=== PATIENT | female | born 1935 | race Caucasian/White ===

== ENCOUNTER 2016-02-23 06:46 | Inpatient (IN) | payer MEDICARE, OTHER ==
[2016-02-22 16:00] LABS: Urine RBC None Seen /hpf (0 - 4)
[2016-02-22 16:28] LABS: Basophils # (auto) 0 uL; Basophils % (auto) 0.4 % (0.0-2.0); Eosinophils # (auto) 0.2 uL; Eosinophils % (auto) 2.2 % (0.0-7.0); Hematocrit 39.1 % (36.0-46.0); Hemoglobin 12.7 g/dL (12.2-16.2); Lymphocytes # (auto) 2.6 uL; Lymphocytes % (auto) 29.1 % (10.0-50.0); Mean Corpuscular Hemoglobin 30.8 pg (28.0-32.0); Mean Corpuscular Hgb Conc. 32.3 g/dL (32.0-36.0); Mean Corpuscular Volume 95.3 fL (80.0-100.0); Mean Platelet Volume 8.9 fL (7.4-10.4); Monocytes # (auto) 0.5 uL; Neutrophils # (auto) 5.5 uL; Neutrophils % (auto) 62.3 % (37.0-80.0); Platelet Count (auto) 327 10^3/uL (140-450); Red Cell Distribution Width 13.9 % (11.6-16.0); White Blood Cell 8.8 10^3/uL (4.4-10.8)
[2016-02-22 16:41] LABS: INR 0.98 (0.9-1.15); Partial Thromboplastin Time 25.8 sec (22.64-33.71); Prothrombin Time 10.1 sec (9.37-12.3)
[2016-02-22 16:54] LABS: Urine Bilirubin Negative (Negative); Urine Blood Negative /uL (Negative); Urine Color Yellow (Yellow); Urine Glucose Normal (Normal); Urine Ketone Negative (Negative); Urine Mucus FEW (None Seen); Urine Nitrite Negative (Negative); Urine Squamous Epithelial Cell FEW /hpf (<5); Urine Urobilinogen Normal (Negative)
[2016-02-22 16:55] LABS: Albumin 3.5 g/dL (3.4-5.0); BUN/Creatinine Ratio 18.9; Bilirubin, Total 0.3 mg/dL (0.2-1.0); Calcium 8.9 mg/dL (8.5-10.1); Potassium 4.2 mmol/L (3.5-5.1); Total Protein 6.8 g/dL (6.4-8.2)
[~2016-02-23] VITALS: Ht 165.1 cm; Wt 67.6 kg
[~2016-02-23 06:46] MED LIST: ACET-1304 PO; AMLO5TAB2 PO; ATEN100T PO; ESTR2TAB PO; HYDR12.56 PO; LISI40TA PO; MELA10CA OR; NIAC500T71 OR; OMEP20CA5 PO
[2016-02-23] MEDS ORDERED: TETRACAINE 1% INJ 2 ML VIAL IJ ONE (08:19)
[2016-02-23] MEDS ORDERED: fentaNYL CITRATE 100 MCG/2 ML VL ONE (08:32)
[2016-02-23] MEDS ORDERED: KETOROLAC TROMETH 60MG/2ML VIAL IM ONE (08:33)
[2016-02-23] MEDS ORDERED: MIDAZOLAM HCL 1MG/1ML-2 ML VIAL ONE ×3 (08:33→10:10)
[2016-02-23] MEDS ORDERED: PROPOFOL 10 MG/ML 20 ML IV ONE (08:33)
[2016-02-23] MEDS ORDERED: DEXAMETHASONE SOD PHOS 10MG/1ML VIAL INJ ONE (08:33)
[2016-02-23] MEDS ORDERED: ONDANSETRON HCL 4 MG/2 ML VIAL ONE (08:33)
[2016-02-23] MEDS ORDERED: MORPHINE SULF(PF) 0.5MG/ML 10ML VIAL ONE (08:41)
[2016-02-23] MEDS ORDERED: SULFAMETH-TRIMETH 80/16MG-ML 10 ML in D5W 5% 250 ML IV ONE (09:00)
[2016-02-23] MEDS ORDERED: NALOXONE HCL 0.4 MG/ML VIAL IV PRN (11:00)
[2016-02-23] MEDS ORDERED: ePHEDrine SULFATE 50 MG/ML AMP IV PRN (11:00)
[2016-02-23] MEDS ORDERED: diphenhdrAMINE HCL 50 MG/1 ML VL IV PRN (11:00)
[2016-02-23] MEDS ORDERED: ONDANSETRON HCL 4 MG/2 ML VIAL IV ONE (11:00)
[2016-02-23] MEDS ORDERED: NALBUPHINE HCL 10 MG/1ml INJECTION SUBCUT ONE (11:00)
[2016-02-23] MEDS ORDERED: DEXAMETHASONE SOD PHOS 10MG/1ML VIAL INJ IV PRN (11:00)
[2016-02-23] MEDS ORDERED: LABETALOL HCL 5 MG/ML 4ML SYRINGE IV PRN (11:00)
[2016-02-23] MEDS ORDERED: HYDROmorphone HCL 2 MG/ML VL IV PRN ×2 (11:00)
[2016-02-23] MEDS ORDERED: MIDAZOLAM HCL 1MG/1ML-2 ML VIAL IV PRN (11:00)
[2016-02-23] MEDS ORDERED: MORPHINE SULF INJ 2 MG/ML SYRINGE 1ML IV PRN (11:00)
[2016-02-23] MEDS ORDERED: LACTATED RINGER'S 1,000 ML IV SCH (11:02)
[2016-02-23] MEDS ORDERED: ACETAMINOPHEN 325 MG TAB PO PRN (11:15)
[2016-02-23] MEDS ORDERED: TEMAZEPAM 15 MG CAP PO PRN (11:15)
[2016-02-23 12:21] VITALS: BP 94/45
[2016-02-23 13:00] VITALS: BP 94/45
[2016-02-23] MEDS: SODIUM CHLOR 0.9% PF (SALINE LOCK) 10ML VIAL IV SCH ×2 (14:00→23:49)
[2016-02-23] MEDS: ONDANSETRON HCL 4 MG/2 ML VIAL IV PRN ×2 (14:02→18:10)
[2016-02-23] MEDS: KETOROLAC TROMETH 30 MG/ML 1ML VIAL IV PRN (14:41)
[2016-02-23 16:42] VITALS: BP 97/45
[2016-02-23] MEDS: HYDROmorphone HCL 2 MG/ML VL IV PRN ×2 (17:18→23:20)
[2016-02-23] MEDS: SULFAMETH-TRIMETH 80/16MG-ML 10 ML in D5W 5% 250 ML IV SCH (18:47)
[2016-02-23] MEDS: DOCUSATE SOD 100 MG CAP PO SCH (21:48)
[2016-02-23 22:00] VITALS: BP 99/59
[2016-02-24] MEDS: ONDANSETRON HCL 4 MG/2 ML VIAL IV PRN ×3 (00:54→19:40)
[2016-02-24] MEDS: SULFAMETH-TRIMETH 80/16MG-ML 10 ML in D5W 5% 250 ML IV SCH ×3 (02:01→18:21)
[2016-02-24] MEDS: KETOROLAC TROMETH 30 MG/ML 1ML VIAL IV PRN ×2 (05:04→19:59)
[2016-02-24 05:29] VITALS: BP 103/62
[2016-02-24] MEDS: SODIUM CHLOR 0.9% PF (SALINE LOCK) 10ML VIAL IV SCH ×3 (06:43→21:41)
[2016-02-24 09:00] VITALS: BP 94/47
[2016-02-24] MEDS ORDERED: MILK OF MAGNESIA 30ML SUSP PO ONE (10:00)
[2016-02-24] MEDS: DOCUSATE SOD 100 MG CAP PO SCH ×3 (10:00→21:36)
[2016-02-24] MEDS: ENOXAPARIN SOD 40 MG/0.4 ML SYRINGE SC SCH (10:40)
[2016-02-24] MEDS: HYDROcodone-ACET 10/325MG TAB PO PRN ×2 (13:00→18:10)
[2016-02-24 13:32] VITALS: BP 98/52
[2016-02-24 13:34] VITALS: BP 98/52
[2016-02-24 17:20] VITALS: BP 92/49
[2016-02-24 22:06] VITALS: BP 114/55
[2016-02-25] MEDS: HYDROcodone-ACET 10/325MG TAB PO PRN ×4 (00:01→22:58)
[2016-02-25] MEDS: ONDANSETRON HCL 4 MG/2 ML VIAL IV PRN ×4 (01:51→18:22)
[2016-02-25] MEDS: KETOROLAC TROMETH 30 MG/ML 1ML VIAL IV PRN (02:49)
[2016-02-25 05:26] VITALS: BP 124/56
[2016-02-25] MEDS: SODIUM CHLOR 0.9% PF (SALINE LOCK) 10ML VIAL IV SCH ×3 (05:43→22:59)
[2016-02-25] MEDS ORDERED: FAMOTIDINE 20 MG TAB PO ONE (08:45)
[2016-02-25 08:51] VITALS: BP 132/59
[2016-02-25] MEDS: DOCUSATE SOD 100 MG CAP PO SCH ×2 (10:26→22:58)
[2016-02-25] MEDS: ENOXAPARIN SOD 40 MG/0.4 ML SYRINGE SC SCH (10:26)
[2016-02-25 12:44] VITALS: BP 125/64
[2016-02-25] MEDS: HYDROmorphone HCL 2 MG/ML VL IV PRN ×2 (12:46→13:08)
[2016-02-25 14:28] LABS: Hematocrit 30.3 % (36.0-46.0)
[2016-02-25 17:02] VITALS: BP 138/74
[2016-02-25 21:59] VITALS: BP 130/68
[2016-02-26] MEDS: HYDROcodone-ACET 10/325MG TAB PO PRN ×3 (05:04→22:08)
[2016-02-26 05:18] VITALS: BP 136/71
[2016-02-26] MEDS: SODIUM CHLOR 0.9% PF (SALINE LOCK) 10ML VIAL IV SCH ×3 (05:54→22:09)
[2016-02-26] MEDS: BOOST 8 ounces PO SCH ×3 (08:19→18:00)
[2016-02-26 09:00] VITALS: BP 156/72
[2016-02-26] MEDS: ENOXAPARIN SOD 40 MG/0.4 ML SYRINGE SC SCH (10:09)
[2016-02-26] MEDS: DOCUSATE SOD 100 MG CAP PO SCH ×2 (10:09→22:08)
[2016-02-26] MEDS: FAMOTIDINE 20 MG TAB PO SCH (10:10)
[2016-02-26] MEDS: ONDANSETRON HCL 4 MG/2 ML VIAL IV PRN (10:19)
[2016-02-26 12:57] LABS: Hematocrit 31.3 % (36.0-46.0); Hemoglobin 10.4 g/dL (12.2-16.2)
[2016-02-26 13:00] VITALS: BP 124/61
[2016-02-26 16:00] VITALS: BP 141/76
[2016-02-26 22:00] VITALS: BP 148/69
[2016-02-27 04:54] VITALS: BP 137/78
[2016-02-27] MEDS: SODIUM CHLOR 0.9% PF (SALINE LOCK) 10ML VIAL IV SCH (06:53)
[2016-02-27] MEDS: BOOST 8 ounces PO SCH (08:00)
[2016-02-27 08:47] LABS: Hematocrit 31.7 % (36.0-46.0); Hemoglobin 10.4 g/dL (12.2-16.2)
[2016-02-27 09:00] VITALS: BP 145/98
[2016-02-27] MEDS: HYDROcodone-ACET 10/325MG TAB PO PRN (10:13)
[2016-02-27] MEDS: ENOXAPARIN SOD 40 MG/0.4 ML SYRINGE SC SCH (10:13)
[2016-02-27] MEDS: FAMOTIDINE 20 MG TAB PO SCH (10:13)
[2016-02-27] MEDS: DOCUSATE SOD 100 MG CAP PO SCH (10:13)
[2016-02-27] MEDS ORDERED: ATENOLOL 50 MG TAB PO ONE (10:15)
[2016-02-27] MEDS ORDERED: POLYETHYLENE GLYCOL 17GM PWDR PO ONE (10:15)
[2016-02-27] MEDS ORDERED: LISINOPRIL 10 MG TAB PO ONE (10:15)
[2016-02-27] MEDS ORDERED: PANTOPRAZOLE 40 MG TAB PO ONE (10:15)
[2016-02-27 11:12] VITALS: BP 145/98
[2016-02-27 13:44] VITALS: BP 128/81
[2016-02-28] MEDS ORDERED: ATENOLOL 50 MG TAB PO SCH (10:00)
[2016-02-28] MEDS ORDERED: LISINOPRIL 10 MG TAB PO SCH (10:00)
== END 2016-02-27 15:50 | DRG 470 ==
LOC: SUR 06:46 → TELE-CENTR 06:47 → CENTRAL 12:31
PROVIDERS: ADMIT Orthopaedic Surgery; ATTEND Family Medicine
PROC: 0SRC0J9 Replacement of Right Knee Joint with Synthetic Substitute, Cemented, Open Approach (ICD-10-PCS; principal; 2016-02-23 08:33)
DX: M17.11 Unilateral primary osteoarthritis, right knee (principal); M21.061 Valgus deformity, not elsewhere classified, right knee; I10 Essential (primary) hypertension; K21.9 Gastro-esophageal reflux disease without esophagitis; K59.00 Constipation, unspecified; S83.001A Unspecified subluxation of right patella, initial encounter; X58.XXXA Exposure to other specified factors, initial encounter; Y93.89 Activity, other specified; Z82.49 Family history of ischemic heart disease and other diseases of the circulatory system; Z88.6 Allergy status to analgesic agent; Z88.1 Allergy status to other antibiotic agents; Z88.0 Allergy status to penicillin; Z88.8 Allergy status to other drugs, medicaments and biological substances; Z83.511 Family history of glaucoma; Z79.899 Other long term (current) drug therapy; Y92.89 Other specified places as the place of occurrence of the external cause; Y99.8 Other external cause status
CPT/HCPCS: 36415; 73562; 80053; 81001; 85014; 85018; 85025; 85049; 85610; 85730; 86850; 86900; 86901; 97001; 97110; 97116; 97530; J1100; J1885; J2250; J2405; J2704; J3490; J7060

== ENCOUNTER → 2016-07-21 | Outpatient (CLI) | payer MEDICARE, OTHER ==
[~2016-07-21] MED LIST changes: -OMEP20CA5 PO; +OMEP20CA74 PO
[2016-07-21 09:50] LABS: Basophils # (auto) 0 uL; Basophils % (auto) 0.3 % (0.0-2.0); CONDITION Y; Eosinophils # (auto) 0.2 uL; Eosinophils % (auto) 1.9 % (0.0-7.0); Hematocrit 38.3 % (36.0-46.0); Hemoglobin 12.9 g/dL (12.2-16.2); Lymphocytes # (auto) 1.6 uL; Lymphocytes % (auto) 19.5 % (10.0-50.0); Mean Corpuscular Hemoglobin 30.9 pg (28.0-32.0); Mean Corpuscular Hgb Conc. 33.8 g/dL (32.0-36.0); Mean Corpuscular Volume 91.5 fL (80.0-100.0); Mean Platelet Volume 7.6 fL (7.4-10.4); Monocytes # (auto) 0.6 uL; Monocytes % (auto) 7.6 % (0.0-12.0); Neutrophils # (auto) 5.6 uL; Neutrophils % (auto) 70.7 % (37.0-80.0); Platelet Count (auto) 357 10^3/uL (140-450); Red Cell Distribution Width 15.1 % (11.6-16.0)
[2016-07-21 10:09] LABS: Albumin 3.4 g/dL (3.4-5.0); BUN/Creatinine Ratio 16.9; Bilirubin, Total 0.6 mg/dL (0.2-1.0); Calcium 8.6 mg/dL (8.5-10.1); Potassium 3.9 mmol/L (3.5-5.1); Total Protein 6.6 g/dL (6.4-8.2)
[2016-07-21 10:38] LABS: Urine Bilirubin Negative (Negative); Urine Blood Negative /uL (Negative); Urine Color Yellow (Yellow); Urine Glucose Normal (Normal); Urine Ketone Negative (Negative); Urine Nitrite Negative (Negative); Urine RBC <1 /hpf (0 - 4); Urine Squamous Epithelial Cell FEW /hpf (<5); Urine Urobilinogen Normal (Negative)
== END | disposition home or self-care (01) ==
LOC: LAB 09:13
PROVIDERS: ATTEND Internal Medicine
DX: E78.5 Hyperlipidemia, unspecified (principal); I10 Essential (primary) hypertension; Z00.00 Encounter for general adult medical examination without abnormal findings; E55.9 Vitamin D deficiency, unspecified
CPT/HCPCS: 36415; 80053; 80061; 81001; 82306; 85025

== ENCOUNTER 2016-09-30 11:10 | Emergency (ER) | payer MEDICARE, OTHER ==
[~2016-09-30] VITALS: Ht 165.1 cm; Wt 59.0 kg
[2016-09-30 11:23] VITALS: BP 198/85
[2016-09-30 12:13] LABS: Basophils # (auto) 0 uL; Basophils % (auto) 0.4 % (0.0-2.0); CONDITION Y; Eosinophils # (auto) 0.4 uL; Eosinophils % (auto) 4.7 % (0.0-7.0); Hematocrit 42.2 % (36.0-46.0); Hemoglobin 14.1 g/dL (12.2-16.2); Lymphocytes # (auto) 2.1 uL; Lymphocytes % (auto) 26.3 % (10.0-50.0); Mean Corpuscular Hemoglobin 31.5 pg (28.0-32.0); Mean Corpuscular Hgb Conc. 33.4 g/dL (32.0-36.0); Mean Corpuscular Volume 94.1 fL (80.0-100.0); Mean Platelet Volume 7.7 fL (7.4-10.4); Monocytes # (auto) 0.6 uL; Monocytes % (auto) 7.1 % (0.0-12.0); Neutrophils % (auto) 61.5 % (37.0-80.0); Platelet Count (auto) 389 10^3/uL (140-450); Red Cell Distribution Width 14.1 % (11.6-16.0); White Blood Cell 8.1 10^3/uL (4.4-10.8)
[2016-09-30 12:43] LABS: Albumin 3.4 g/dL (3.4-5.0); BUN/Creatinine Ratio 14.5; Bilirubin, Total 0.4 mg/dL (0.2-1.0); Potassium 4.3 mmol/L (3.5-5.1); Total Protein 7.4 g/dL (6.4-8.2)
== END 2016-09-30 12:34 | disposition left against medical advice (07) ==
LOC: ER 11:10
DX: R10.9 Unspecified abdominal pain (principal); M54.9 Dorsalgia, unspecified; Z53.21 Procedure and treatment not carried out due to patient leaving prior to being seen by health care provider
CPT/HCPCS: 36415; 80053; 85025

== ENCOUNTER → 2016-10-25 | Outpatient (CLI) | payer MEDICARE, OTHER | END | disposition home or self-care (01) | LOC: LAB 09:58 | PROVIDERS: ATTEND Internal Medicine Gastroenterology | DX: R10.31 Right lower quadrant pain (principal) | CPT/HCPCS: 36415; 82565; 84520 ==

== ENCOUNTER 2016-11-16 12:06 | Emergency (ER) | payer MEDICARE, OTHER ==
[~2016-11-16] VITALS: Ht 165.1 cm; Wt 59.0 kg
[2016-11-16 13:02] VITALS: BP 171/74
[2016-11-16 13:02] LABS: Basophils # (auto) 0.1 uL; Basophils % (auto) 0.7 % (0.0-2.0); Eosinophils # (auto) 0.2 uL; Eosinophils % (auto) 1.6 % (0.0-7.0); Hematocrit 43.5 % (36.0-46.0); Lymphocytes # (auto) 1.8 uL; Lymphocytes % (auto) 16.4 % (10.0-50.0); Mean Corpuscular Hemoglobin 31.1 pg (28.0-32.0); Mean Corpuscular Hgb Conc. 32.3 g/dL (32.0-36.0); Mean Corpuscular Volume 96.2 fL (80.0-100.0); Mean Platelet Volume 7.6 fL (6.9-10.8); Monocytes # (auto) 0.9 uL; Monocytes % (auto) 8.7 % (0.0-12.0); Neutrophils # (auto) 7.9 uL; Neutrophils % (auto) 72.6 % (37.0-80.0); Platelet Count (auto) 299 10^3/uL (140-450); Red Cell Distribution Width 13.8 % (11.8-14.3); White Blood Cell 10.9 10^3/uL (4.4-10.8)
[2016-11-16 13:31] LABS: Albumin 3.7 g/dL (3.4-5.0); BUN/Creatinine Ratio 14.5; Bilirubin, Total 0.8 mg/dL (0.2-1.0); Calcium 8.8 mg/dL (8.5-10.1); Potassium 3.9 mmol/L (3.5-5.1); Total Protein 7.5 g/dL (6.4-8.2)
[2016-11-16] MEDS ORDERED: SODIUM CHLORIDE 0.9% 1,000 ML IV ONE (13:37)
== END 2016-11-16 16:46 | disposition home or self-care (01) ==
LOC: ER 12:06 → EDUNIT# 12:06 → ER 16:46
DX: R10.9 Unspecified abdominal pain (principal); I10 Essential (primary) hypertension; K21.9 Gastro-esophageal reflux disease without esophagitis; Z90.710 Acquired absence of both cervix and uterus; Z90.89 Acquired absence of other organs; Z79.899 Other long term (current) drug therapy; Z88.0 Allergy status to penicillin; Z88.6 Allergy status to analgesic agent; Z88.1 Allergy status to other antibiotic agents
CPT/HCPCS: 36415; 71010; 74176; 80053; 84484; 85025; 93005; 96360; 96361; 99285; J7030

== ENCOUNTER 2016-12-28 22:46 | Emergency (ER) | payer MEDICARE, OTHER ==
[~2016-12-28] VITALS: Ht 165.1 cm; Wt 59.0 kg
[~2016-12-28 22:46] MED LIST changes: +APIX5TAB OR; +HYOS0.1250 PO; +ONDA4TAB5 PO
[2016-12-29] MEDS ORDERED: IOHEXOL 300 MG/ML 100ML BOTTLE IJ ONE (00:46)
[2016-12-29 01:16] LABS: Basophils # (auto) 0 uL; Basophils % (auto) 0.4 % (0.0-2.0); Eosinophils # (auto) 0.1 uL; Eosinophils % (auto) 1.3 % (0.0-7.0); Hematocrit 40.1 % (36.0-46.0); Hemoglobin 13.4 g/dL (12.2-16.2); Lymphocytes # (auto) 1.6 uL; Lymphocytes % (auto) 16.1 % (10.0-50.0); Mean Corpuscular Hemoglobin 31.1 pg (28.0-32.0); Mean Corpuscular Hgb Conc. 33.4 g/dL (32.0-36.0); Mean Platelet Volume 8.1 fL (6.9-10.8); Monocytes # (auto) 0.7 uL; Monocytes % (auto) 7.6 % (0.0-12.0); Neutrophils # (auto) 7.2 uL; Neutrophils % (auto) 74.6 % (37.0-80.0); Platelet Count (auto) 263 10^3/uL (140-450); Red Cell Distribution Width 14.1 % (11.8-14.3); White Blood Cell 9.7 10^3/uL (4.4-10.8)
[2016-12-29 01:30] LABS: Albumin 3.2 g/dL (3.4-5.0); BUN/Creatinine Ratio 13.9; Calcium 8.7 mg/dL (8.5-10.1); Potassium 3.8 mmol/L (3.5-5.1)
[2016-12-29 01:32] LABS: Bilirubin, Total 0.2 mg/dL (0.2-1.0); Total Protein 6.3 g/dL (6.4-8.2)
[2016-12-29 02:39] VITALS: BP 143/69
[2016-12-29] MEDS ORDERED: LACTULOSE 20Gm/30ML SOLN PO ONE (03:00)
[2016-12-29] MEDS ORDERED: MAGNESIUM CITRATE SOLUTION 300 ML BTL PO ONE (03:00)
== END 2016-12-29 04:09 | disposition home or self-care (01) ==
LOC: EDBD 22:46 → ER 22:48
DX: K56.41 Fecal impaction (principal); K21.9 Gastro-esophageal reflux disease without esophagitis; I10 Essential (primary) hypertension; Z90.79 Acquired absence of other genital organ(s); Z90.710 Acquired absence of both cervix and uterus; Z88.0 Allergy status to penicillin; Z88.1 Allergy status to other antibiotic agents; Z88.6 Allergy status to analgesic agent
CPT/HCPCS: 36415; 74177; 80053; 83690; 85025; 93005; 94761; 99285; Q9967

== ENCOUNTER → 2018-02-26 | Outpatient (CLI) | payer MEDICARE, OTHER ==
[~2018-02-26] MED LIST changes: -AMLO5TAB2 PO
[2018-02-26 09:37] LABS: Urine WBC None Seen /hpf (0 - 5)
[2018-02-26 10:12] LABS: Basophils # (auto) 0.1 uL; Basophils % (auto) 0.8 % (0.0-2.0); Eosinophils # (auto) 0.1 uL; Eosinophils % (auto) 1.9 % (0.0-7.0); Hematocrit 42.7 % (36.0-46.0); Hemoglobin 14.4 g/dL (12.2-16.2); Lymphocytes # (auto) 1.9 uL; Lymphocytes % (auto) 27.4 % (10.0-50.0); Mean Corpuscular Hemoglobin 31.7 pg (28.0-32.0); Mean Corpuscular Hgb Conc. 33.8 g/dL (32.0-36.0); Monocytes # (auto) 0.5 uL; Monocytes % (auto) 7.4 % (0.0-12.0); Neutrophils # (auto) 4.4 uL; Neutrophils % (auto) 62.5 % (37.0-80.0); Platelet Count (auto) 306 10^3/uL (140-450); Red Blood Cells 4.55 10^6/uL (4.0-5.20)
[2018-02-26 10:26] LABS: Urine Bacteria NONE SEEN /hpf (None Seen); Urine Blood Negative /uL (Negative); Urine Specific Gravity 1.002 (1.001-1.035)
[2018-02-26 10:30] LABS: INR 0.89 (0.9-1.15); Partial Thromboplastin Time 27.7 sec (23.78-33.04); Prothrombin Time 9.6 sec (9.27-12.13)
[2018-02-26 13:22] LABS: Chloride 95 mmol/L (98-107); Potassium 3.5 mmol/L (3.5-5.1); Sodium 130 mmol/L (136-145)
[2018-02-26 13:33] LABS: Alanine Aminotransferase 18 U/L (13-56); Albumin 3.5 g/dL (3.4-5.0); Alkaline Phosphatase 69 U/L (45-117); Anion Gap 4 (5-15); Aspartate Aminotransferase 18 U/L (15-37); BUN/Creatinine Ratio 10.6; Bilirubin, Total 0.6 mg/dL (0.2-1.0); Blood Urea Nitrogen 7 mg/dL (7-18); Calcium 8.5 mg/dL (8.5-10.1); Carbon Dioxide 31 mmol/L (21-32); Cholesterol 211 mg/dL (< 200); GFR African American > 60 mL/min; GFR Non-African American > 60 mL/min; Glucose 86 mg/dL (74-106); HDL Cholesterol 90 mg/dL (40-59); LDL Cholesterol 106 mg/dL (< 100); Triglycerides 111 mg/dL (< 150)
== END | disposition home or self-care (01) ==
LOC: LAB 09:09
PROVIDERS: ATTEND Physician Assistant
DX: Z01.818 Encounter for other preprocedural examination (principal); I10 Essential (primary) hypertension; E78.2 Mixed hyperlipidemia; I48.0 Paroxysmal atrial fibrillation; E87.6 Hypokalemia; G89.29 Other chronic pain
CPT/HCPCS: 36415; 80053; 80061; 81001; 85025; 85610; 85730; 86850; 86900; 86901

== ENCOUNTER → 2018-06-04 | Outpatient (CLI) | payer MEDICARE, OTHER ==
[2018-06-04 16:59] LABS: Albumin 3.5 g/dL (3.4-5.0); Calcium 9.2 mg/dL (8.5-10.1); Potassium 3.9 mmol/L (3.5-5.1)
[2018-06-04 17:02] LABS: BUN/Creatinine Ratio 14.5; Bilirubin, Total 0.3 mg/dL (0.2-1.0); Total Protein 7.3 g/dL (6.4-8.2)
== END | disposition home or self-care (01) ==
LOC: LAB 15:34
PROVIDERS: ATTEND Physician Assistant
DX: R53.83 Other fatigue (principal); I10 Essential (primary) hypertension; R79.89 Other specified abnormal findings of blood chemistry; Z79.899 Other long term (current) drug therapy; Z83.49 Family history of other endocrine, nutritional and metabolic diseases
CPT/HCPCS: 36415; 80053; 82306; 82607; 83540; 84443

== ENCOUNTER → 2018-07-31 | Outpatient (CLI) | payer MEDICARE, BC | END | disposition home or self-care (01) | LOC: Rad HDHVI 09:53 | PROVIDERS: ATTEND Internal Medicine Cardiovascular Disease | DX: I08.3 Combined rheumatic disorders of mitral, aortic and tricuspid valves (principal); R00.2 Palpitations; I10 Essential (primary) hypertension | CPT/HCPCS: 93306; 93880 ==

== ENCOUNTER → 2018-08-23 | Outpatient (CLI) | payer MEDICARE, BC ==
[~2018-08-23] VITALS: Ht 165.1 cm; Wt 54.4 kg
[~2018-08-23] MED LIST changes: +ADENOSINE 46 MG in GIVE UN-DILUTED 0 ML IV ONE; +ADENOSINE 90 MG/30 ML INJ IV ONE; +cloNIDine HCL 0.1 MG TAB ONE
[2018-08-23 15:50] LABS: Urine Blood Negative /uL (Negative); Urine Specific Gravity 1.003 (1.001-1.035)
[2018-08-23 15:54] LABS: Basophils # (auto) 0.1 uL; Basophils % (auto) 0.9 % (0.0-2.0); Eosinophils # (auto) 0.2 uL; Eosinophils % (auto) 2.4 % (0.0-7.0); Hematocrit 42.4 % (36.0-46.0); Lymphocytes % (auto) 27.2 % (10.0-50.0); Mean Corpuscular Hemoglobin 31.3 pg (28.0-32.0); Mean Corpuscular Hgb Conc. 33.1 g/dL (32.0-36.0); Mean Corpuscular Volume 94.6 fL (80.0-100.0); Monocytes # (auto) 0.6 uL; Monocytes % (auto) 7.7 % (0.0-12.0); Neutrophils # (auto) 4.5 uL; Neutrophils % (auto) 61.8 % (37.0-80.0); Nucleated Red Blood Cells % 0.1 %; Platelet Count (auto) 257 10^3/uL (140-450); Red Blood Cells 4.48 10^6/uL (4.0-5.20); Red Cell Distribution Width 15.2 % (11.8-14.3); White Blood Cell 7.2 10^3/uL (4.4-10.8)
[2018-08-23 15:58] LABS: Albumin 3.3 g/dL (3.4-5.0); Calcium 8.7 mg/dL (8.5-10.1); Potassium 3.8 mmol/L (3.5-5.1)
[2018-08-23 16:01] LABS: BUN/Creatinine Ratio 14.3; Bilirubin, Total 0.5 mg/dL (0.2-1.0); Total Protein 6.6 g/dL (6.4-8.2)
[2018-08-23 16:11] LABS: T3 Total 1.02 ng/mL (0.60-1.81)
[2018-08-23 16:14] LABS: Free T4 (Free Thyroxine) 1.2 ng/dL (0.89-1.76)
== END | disposition home or self-care (01) ==
LOC: Rad HDHVI 08:52
PROVIDERS: ATTEND Internal Medicine Cardiovascular Disease
DX: R00.2 Palpitations (principal); I11.0 Hypertensive heart disease with heart failure; I50.9 Heart failure, unspecified; D64.9 Anemia, unspecified; R53.83 Other fatigue; E03.9 Hypothyroidism, unspecified; E78.00 Pure hypercholesterolemia, unspecified; Z79.899 Other long term (current) drug therapy
CPT/HCPCS: 36415; 78452; 80053; 81003; 83036; 83880; 84439; 84480; 85025; 93005; 96374; 96375; A9500; J0153

== ENCOUNTER → 2018-11-28 | Outpatient (CLI) | payer MEDICARE, BC ==
[~2018-11-28] MED LIST changes: -ADENOSINE 46 MG in GIVE UN-DILUTED 0 ML IV ONE; -ADENOSINE 90 MG/30 ML INJ IV ONE; +ONDA-144 PO; -ONDA4TAB5 PO; -cloNIDine HCL 0.1 MG TAB ONE
== END | disposition home or self-care (01) ==
LOC: LAB 14:07
PROVIDERS: ATTEND Physician Assistant
DX: Z12.11 Encounter for screening for malignant neoplasm of colon (principal)
CPT/HCPCS: 82274

== ENCOUNTER → 2019-02-27 | Outpatient (CLI) | payer MEDICARE, BC ==
[~2019-02-27] MED LIST changes: +READI-CAT 2 (BARIUM SULF)(VANILLA SMOOTHIE) 450ML ONE
[2019-02-27 12:35] LABS: Albumin 3.4 g/dL (3.4-5.0); Bilirubin, Direct 0.1 mg/dL (0-0.2); Bilirubin, Total 0.4 mg/dL (0.2-1.0)
== END | disposition home or self-care (01) ==
LOC: Rad HDHVI 09:29
PROVIDERS: ATTEND Internal Medicine Cardiovascular Disease
DX: E78.5 Hyperlipidemia, unspecified (principal); R10.9 Unspecified abdominal pain; R06.02 Shortness of breath; M46.05 Spinal enthesopathy, thoracolumbar region; I70.0 Atherosclerosis of aorta; Z90.49 Acquired absence of other specified parts of digestive tract
CPT/HCPCS: 36415; 74176; 80061; 80076

== ENCOUNTER 2019-10-28 10:16 | Inpatient (IN) | payer MEDICARE, BC ==
[~2019-10-28] VITALS: Ht 165.1 cm; Wt 63.8 kg
[~2019-10-28 10:16] MED LIST changes: -LISI40TA PO; +LISI40TA11 PO; -READI-CAT 2 (BARIUM SULF)(VANILLA SMOOTHIE) 450ML ONE
[2019-10-28] MEDS ORDERED: SODIUM CHLORIDE 0.9% 500 ML IVB ONE (10:25)
[2019-10-28] MEDS ORDERED: MORPHINE SULFATE 4 MG/ML SYR/VIAL IV ONE (10:30)
[2019-10-28] MEDS ORDERED: ONDANSETRON HCL 4 MG/2 ML VIAL IV ONE (10:30)
[2019-10-28 11:07] LABS: Basophils # (auto) 0.1 10 ^3/uL (0-0.2); Eosinophils # (auto) 0.2 10 ^3/uL (0-0.8); Hematocrit 48.5 % (36.0-46.0); Hemoglobin 16.1 g/dL (12.2-16.2); Lymphocytes # (auto) 2.2 10 ^3/uL (0.4-5.4); Lymphocytes % (auto) 18.4 % (10.0-50.0); Mean Corpuscular Hemoglobin 31.1 pg (28.0-32.0); Mean Corpuscular Hgb Conc. 33.2 g/dL (32.0-36.0); Mean Corpuscular Volume 93.5 fL (80.0-100.0); Monocytes % (auto) 8.3 % (0.0-12.0); Neutrophils # (auto) 8.4 10 ^3/uL (1.6-8.6); Neutrophils % (auto) 70.3 % (37.0-80.0); Nucleated Red Blood Cells % 0.1 %; Platelet Count (auto) 369 10^3/uL (140-450); Red Blood Cells 5.18 10^6/uL (4.0-5.20); Red Cell Distribution Width 14.3 % (11.8-14.3); White Blood Cell 11.9 10^3/uL (4.4-10.8)
[2019-10-28 11:33] LABS: Anion Gap 7 (5-15); Blood Urea Nitrogen 17 mg/dL (7-18); Calcium 9.7 mg/dL (8.5-10.1); Carbon Dioxide 28 mmol/L (21-32); Chloride 101 mmol/L (98-107); Glucose 96 mg/dL (74-106); Lipase 294 U/L (73-393); Potassium 3.7 mmol/L (3.5-5.1); Sodium 136 mmol/L (136-145)
[2019-10-28 11:47] LABS: Alanine Aminotransferase 40 U/L (13-56); Alkaline Phosphatase 86 U/L (45-117); Aspartate Aminotransferase 26 U/L (15-37); BUN/Creatinine Ratio 17.2; Bilirubin, Total 0.4 mg/dL (0.2-1.0); GFR African American 69 mL/min; GFR Non-African American 57 mL/min; Total Protein 8.4 g/dL (6.4-8.2)
[2019-10-28] MEDS ORDERED: NITROGLYCERIN 0.4 MG SL TAB SL PRN (12:30)
[2019-10-28] MEDS ORDERED: MORPHINE SULF INJ 2 MG/ML SYRINGE 1ML IV PRN ×3 (12:30→16:30)
[2019-10-28] MEDS ORDERED: ONDANSETRON HCL 4 MG/2 ML VIAL IV PRN (12:45)
[2019-10-28] MEDS ORDERED: ENOXAPARIN SOD 30 MG/0.3 ML SYRINGE SC ONE (12:45)
[2019-10-28] MEDS ORDERED: LORazepam 2MG/ML-1ML VIAL IV PRN (12:45)
[2019-10-28] MEDS ORDERED: hydrALAZINE HCL 20 MG/ML VL IV PRN (12:45)
[2019-10-28 13:40] LABS: Urine Bacteria NONE SEEN /hpf (None Seen); Urine Blood Negative /uL (Negative); Urine Hyaline Cast MOD /lpf (0 - 2); Urine Specific Gravity 1.011 (1.001-1.035); Urine WBC 2 /hpf (0 - 5)
[2019-10-28] MEDS ORDERED: AMIT PO (13:55)
[2019-10-28] MEDS ORDERED: NIFE1TAB30 PO (13:55)
[2019-10-28] MEDS ORDERED: VENL37.588 PO (13:55)
[2019-10-28] MEDS ORDERED: FAMO-12 PO (13:55)
[2019-10-28] MEDS ORDERED: TRAM50TA2 PO (13:55)
[2019-10-28] MEDS ORDERED: CLO01T PO (13:55)
[2019-10-28] MEDS ORDERED: GLUC1CAP12 PO (14:02)
[2019-10-28] MEDS ORDERED: MULT-1058 PO (14:02)
[2019-10-28] MEDS ORDERED: POLY33504 PO (14:02)
[2019-10-28] MEDS: D5W/SOD CHLO 0.9% 1,000 ML IV SCH (14:11)
[2019-10-28] MEDS: ENALAPRILAT 1.25 MG/ML-1ML VIAL IV SCH (18:00)
[2019-10-28] MEDS: HYOSCYAMINE SULF 0.125 MG ODT TAB PO PRN (21:40)
[2019-10-28 22:00] VITALS: BP 129/75
[2019-10-29] MEDS: D5W/SOD CHLO 0.9% 1,000 ML IV SCH (02:59)
[2019-10-29 05:00] VITALS: BP 137/65
[2019-10-29] MEDS: ENALAPRILAT 1.25 MG/ML-1ML VIAL IV SCH ×2 (06:00)
[2019-10-29 06:29] LABS: Basophils # (auto) 0.1 10 ^3/uL (0-0.2); Eosinophils # (auto) 0.2 10 ^3/uL (0-0.8); Eosinophils % (auto) 2.9 % (0.0-7.0); Hematocrit 34.2 % (36.0-46.0); Hemoglobin 11.7 g/dL (12.2-16.2); Lymphocytes # (auto) 1.9 10 ^3/uL (0.4-5.4); Lymphocytes % (auto) 28.6 % (10.0-50.0); Mean Corpuscular Hgb Conc. 34.2 g/dL (32.0-36.0); Mean Corpuscular Volume 93.5 fL (80.0-100.0); Monocytes # (auto) 0.6 10 ^3/uL (0-1.3); Monocytes % (auto) 8.5 % (0.0-12.0); Neutrophils # (auto) 3.8 10 ^3/uL (1.6-8.6); Nucleated Red Blood Cells % 0.1 %; Platelet Count (auto) 271 10^3/uL (140-450); Red Blood Cells 3.66 10^6/uL (4.0-5.20); Red Cell Distribution Width 14.1 % (11.8-14.3); White Blood Cell 6.5 10^3/uL (4.4-10.8)
[2019-10-29 06:49] LABS: INR 0.97 (0.9-1.15); Partial Thromboplastin Time 26.5 sec (23.0-31.2)
[2019-10-29 06:52] LABS: Potassium 3.8 mmol/L (3.5-5.1)
[2019-10-29 07:24] LABS: Albumin 2.6 g/dL (3.4-5.0); BUN/Creatinine Ratio 21.1; Bilirubin, Total 0.4 mg/dL (0.2-1.0); Calcium 7.8 mg/dL (8.5-10.1); Phosphorus 2.4 mg/dL (2.5-4.90); Total Protein 5.2 g/dL (6.4-8.2)
[2019-10-29 09:00] VITALS: BP 166/84
[2019-10-29] MEDS: PANTOPRAZOLE 40 MG/10 ML VIAL INJ IV SCH (10:14)
[2019-10-29] MEDS: HYOSCYAMINE SULF 0.125 MG ODT TAB PO PRN (10:15)
[2019-10-29] MEDS ORDERED: LORazepam 2MG/ML-1ML VIAL IV PRN (11:45)
[2019-10-29] MEDS ORDERED: traMADol HCL 50 MG TAB PO PRN (11:45)
[2019-10-29] MEDS ORDERED: LISINOPRIL 20 MG TAB PO ONE (11:45)
[2019-10-29] MEDS ORDERED: MORPHINE SULF INJ 2 MG/ML SYRINGE 1ML IV PRN (11:45)
[2019-10-29 13:07] VITALS: BP 108/70
[2019-10-29 13:10] VITALS: BP 164/70
[2019-10-29 16:50] VITALS: BP 151/74
[2019-10-29] MEDS: Ensure Enlive Strawberry 8oz Bottle PO SCH (19:20)
[2019-10-29 22:00] VITALS: BP 161/74
[2019-10-29] MEDS ORDERED: DOCUSATE SOD 100 MG CAP PO ONE (22:30)
[2019-10-30] VITALS: BP 130/62
[2019-10-30 05:00] VITALS: BP 158/74
[2019-10-30 06:04] LABS: Basophils # (auto) 0 10 ^3/uL (0-0.2); Basophils % (auto) 0.6 % (0.0-2.0); Eosinophils # (auto) 0.3 10 ^3/uL (0-0.8); Eosinophils % (auto) 3.4 % (0.0-7.0); Hematocrit 37.3 % (36.0-46.0); Hemoglobin 12.6 g/dL (12.2-16.2); Lymphocytes # (auto) 2.2 10 ^3/uL (0.4-5.4); Lymphocytes % (auto) 29.3 % (10.0-50.0); Mean Corpuscular Hemoglobin 31.9 pg (28.0-32.0); Mean Corpuscular Hgb Conc. 33.9 g/dL (32.0-36.0); Mean Corpuscular Volume 94.3 fL (80.0-100.0); Monocytes # (auto) 0.7 10 ^3/uL (0-1.3); Monocytes % (auto) 8.6 % (0.0-12.0); Neutrophils # (auto) 4.4 10 ^3/uL (1.6-8.6); Neutrophils % (auto) 58.1 % (37.0-80.0); Nucleated Red Blood Cells % 0.2 %; Platelet Count (auto) 288 10^3/uL (140-450); Red Blood Cells 3.95 10^6/uL (4.0-5.20); Red Cell Distribution Width 14.3 % (11.8-14.3); White Blood Cell 7.6 10^3/uL (4.4-10.8)
[2019-10-30 06:28] LABS: Albumin 2.9 g/dL (3.4-5.0); Calcium 8.6 mg/dL (8.5-10.1); Potassium 4.2 mmol/L (3.5-5.1)
[2019-10-30 06:34] LABS: BUN/Creatinine Ratio 28.2; Bilirubin, Total 0.3 mg/dL (0.2-1.0); Total Protein 6.1 g/dL (6.4-8.2)
[2019-10-30] MEDS: Ensure Enlive Strawberry 8oz Bottle PO SCH ×2 (08:00→16:19)
[2019-10-30] MEDS ORDERED: LISINOPRIL 20 MG TAB PO SCH (10:00)
[2019-10-30] MEDS ORDERED: DOCUSATE SOD 100 MG CAP PO SCH (10:00)
[2019-10-30] MEDS ORDERED: LACTULOSE 20Gm/30ML SOLN PO PRN (10:15)
[2019-10-30] MEDS: PANTOPRAZOLE 40 MG/10 ML VIAL INJ IV SCH (10:30)
[2019-10-30 13:00] VITALS: BP 165/74
[2019-10-30] MEDS ORDERED: LISINOPRIL 20 MG TAB PO ONE (14:30)
[2019-10-30] MEDS ORDERED: cloNIDine HCL 0.1 MG TAB PO PRN (16:15)
[2019-10-30 17:00] VITALS: BP 175/90
== END 2019-10-30 18:24 | disposition home or self-care (01) | DRG 390 ==
LOC: EDBD 10:16 → ER 10:16 → OVERFLOW 10:17 → CENTRAL 18:17
PROVIDERS: ATTEND Internal Medicine
DX: K56.600 Partial intestinal obstruction, unspecified as to cause (principal); K21.9 Gastro-esophageal reflux disease without esophagitis; I10 Essential (primary) hypertension; K59.00 Constipation, unspecified; K83.8 Other specified diseases of biliary tract; Z79.01 Long term (current) use of anticoagulants; Z79.899 Other long term (current) drug therapy; Z80.0 Family history of malignant neoplasm of digestive organs; Z82.49 Family history of ischemic heart disease and other diseases of the circulatory system; Z90.710 Acquired absence of both cervix and uterus; Z88.1 Allergy status to other antibiotic agents
CPT/HCPCS: 36415; 71045; 72125; 74176; 74181; 80053; 80061; 81001; 82150; 83690; 83735; 84100; 84436; 84443; 84484; 85025; 85610; 85730; 93005; 96374; 96375; 96376; C9113; G0378; J2405; J7042

== ENCOUNTER 2019-11-06 07:51 | Inpatient (IN) | payer MEDICARE, BC ==
[~2019-11-06] VITALS: Ht 165.1 cm; Wt 62.3 kg
[~2019-11-06 07:51] MED LIST changes: -ACET-1304 PO; +AMIT PO; -APIX5TAB OR; +CLO01T PO; +FAMO-12 PO; +GLUC1CAP12 PO; -HYDR12.56 PO; -HYOS0.1250 PO; +MULT-1058 PO; -NIAC500T71 OR; +NIFE1TAB30 PO; -OMEP20CA74 PO; -ONDA-144 PO; +POLY33504 PO; +TRAM50TA2 PO; +VENL37.588 PO
[2019-11-06] MEDS ORDERED: PROMETHAZINE HCL 25 MG/ML 1ML IV PRN (08:15)
[2019-11-06] MEDS ORDERED: HYDROmorphone HCL 2 MG/ML VL IV ONE (08:15)
[2019-11-06] MEDS ORDERED: SODIUM CHLORIDE 0.9% 1,000 ML IV ONE (08:15)
[2019-11-06 08:33] LABS: Basophils # (auto) 0.1 10 ^3/uL (0-0.2); Basophils % (auto) 0.7 % (0.0-2.0); Eosinophils # (auto) 0.4 10 ^3/uL (0-0.8); Eosinophils % (auto) 2.8 % (0.0-7.0); Hematocrit 41.1 % (36.0-46.0); Hemoglobin 13.8 g/dL (12.2-16.2); Lymphocytes # (auto) 1.8 10 ^3/uL (0.4-5.4); Lymphocytes % (auto) 13.2 % (10.0-50.0); Mean Corpuscular Hemoglobin 31.7 pg (28.0-32.0); Mean Corpuscular Hgb Conc. 33.6 g/dL (32.0-36.0); Mean Corpuscular Volume 94.3 fL (80.0-100.0); Monocytes # (auto) 1.1 10 ^3/uL (0-1.3); Monocytes % (auto) 7.6 % (0.0-12.0); Neutrophils # (auto) 10.5 10 ^3/uL (1.6-8.6); Neutrophils % (auto) 75.7 % (37.0-80.0); Platelet Count (auto) 392 10^3/uL (140-450); Red Blood Cells 4.36 10^6/uL (4.0-5.20); Red Cell Distribution Width 14.3 % (11.8-14.3); White Blood Cell 13.8 10^3/uL (4.4-10.8)
[2019-11-06 08:49] LABS: Albumin 3.3 g/dL (3.4-5.0); Calcium 8.8 mg/dL (8.5-10.1); Magnesium 2.3 mg/dL (1.6-2.6); Potassium 4.4 mmol/L (3.5-5.1)
[2019-11-06 08:51] LABS: BUN/Creatinine Ratio 22.7; Bilirubin, Total 0.3 mg/dL (0.2-1.0); Total Protein 6.8 g/dL (6.4-8.2)
[2019-11-06] MEDS ORDERED: IOHEXOL 300 MG/ML 100ML BOTTLE IJ ONE (09:13)
[2019-11-06 09:27] LABS: INR 0.92 (0.9-1.15); Partial Thromboplastin Time 26.2 sec (23.0-31.2)
[2019-11-06 11:39] LABS: Urine Bacteria NONE SEEN /hpf (None Seen); Urine Blood Negative /uL (Negative); Urine Specific Gravity 1.024 (1.001-1.035); Urine WBC 1 /hpf (0 - 5)
[2019-11-06] MEDS ORDERED: ACETAMINOPHEN 500 MG TAB PO PRN (12:00)
[2019-11-06] MEDS ORDERED: MORPHINE SULF INJ 2 MG/ML SYRINGE 1ML IV PRN ×2 (12:00)
[2019-11-06] MEDS ORDERED: ONDANSETRON HCL 4 MG/2 ML VIAL IV PRN (12:00)
[2019-11-06] MEDS ORDERED: NITROGLYCERIN 0.4 MG SL TAB SL PRN (12:00)
[2019-11-06] MEDS ORDERED: cefTRIAXone 1GM/50ML D5W 50 ML IV ONE (12:45)
[2019-11-06] MEDS ORDERED: LISINOPRIL 20 MG TAB PO ONE (12:45)
[2019-11-06] MEDS ORDERED: PANTOPRAZOLE 40 MG/10 ML VIAL INJ IV ONE (13:00)
[2019-11-06] MEDS ORDERED: ATENOLOL 25 MG TAB PO ONE (13:00)
[2019-11-06] MEDS ORDERED: DICY20TA PO (13:51)
[2019-11-06] MEDS: metroNIDAZOLE 500MG/100ML 100 ML IV SCH ×2 (14:22→22:12)
--- NOTE | 2019-11-06 15:30 | NUR ---
Telemetry admit from ER VICTORINO,JORDON DELVALLE admitted to Telemetry unit after SBAR received. Patient oriented to Kary Pelaez, primary RN, unit, room, bed, and unit policies regarding patient care and visiting hours. Patient now on continuous telemetry monitoring, tele box #29 and telemetry reading on arrival to unit is sinus rhythm @ 71 bpm. IV to left upper arm, 20 gauge, patent and saline locked. Patient placed on bedside oxygen, weighed by bedscale and encouraged to call if they need something. All questions and concerns addressed, patient verbalized understanding.
[2019-11-06 16:49] VITALS: BP 129/61
[2019-11-06] MEDS: VENLAFAXINE HCL 37.5mg XR cap PO SCH (17:49)
[2019-11-06] MEDS ORDERED: NIFEdipine ER 30 MG TAB PO SCH (18:00)
--- NOTE | 2019-11-06 19:02 | NUR ---
Care endorsed to GAYLE Reeves, night nurse.
--- NOTE | 2019-11-06 19:30 | NUR ---
Opening Shift Note Assumed care of patient, awake and alert. No S/S of distress/SOB or pain. Instructed on POC and to call for assist PRN, will continue to monitor for changes Q1hr and PRN.
[2019-11-06 22:00] VITALS: BP 116/52
[2019-11-06] MEDS: ATENOLOL 25 MG TAB PO SCH (22:00)
[2019-11-07] MEDS: AMITRIPTYLINE HCL 10 MG TAB PO PRN ×2 (01:14→22:05)
[2019-11-07 05:01] VITALS: BP 150/61
[2019-11-07 06:19] LABS: Potassium 4.1 mmol/L (3.5-5.1)
[2019-11-07 06:28] LABS: Albumin 2.8 g/dL (3.4-5.0); BUN/Creatinine Ratio 15.3; Bilirubin, Total 0.3 mg/dL (0.2-1.0); Calcium 8.5 mg/dL (8.5-10.1); Total Protein 6.1 g/dL (6.4-8.2)
[2019-11-07] MEDS: metroNIDAZOLE 500MG/100ML 100 ML IV SCH ×3 (06:41→22:05)
--- NOTE | 2019-11-07 07:30 | NUR ---
Shift uneventful. Report given to GAYLE Darling.
[2019-11-07] MEDS: cefTRIAXone 1GM/50ML D5W 50 ML IV SCH (08:47)
[2019-11-07 09:00] VITALS: BP 135/63
[2019-11-07] MEDS ORDERED: LISINOPRIL 20 MG TAB PO SCH (10:00)
[2019-11-07] MEDS: ATENOLOL 25 MG TAB PO SCH (10:00)
[2019-11-07] MEDS ORDERED: GASTROGRAFIN 120 ML SOL ONE (10:26)
--- NOTE | 2019-11-07 10:30 | NUR ---
PATIENT TO RADIOLOGY PER W/C FOR SMALL BOWEL SERIES IN STABLE CONDITION.
--- NOTE | 2019-11-07 11:45 | NUR ---
PATIENT RETURNED FROM RADIOLOGY PER W/C IN STABLE CONDITION.
[2019-11-07] MEDS: PANTOPRAZOLE 40 MG/10 ML VIAL INJ IV SCH (11:51)
[2019-11-07 13:00] VITALS: BP 150/77
[2019-11-07 17:20] VITALS: BP 164/73
[2019-11-07] MEDS: VENLAFAXINE HCL 37.5mg XR cap PO SCH (18:04)
--- NOTE | 2019-11-07 18:09 | NUR ---
IV removal IV DC'd with sterile technique, catheter fully intact. Pressure dressing applied to site. Patient tolerated procedure well. IV insertion IV access obtained, via clean sterile technique by inserting 22 gauge catheter at right wrist after 1 attempt(s). IV secured properly. No trauma to site. Patient tolerated procedure well.
--- NOTE | 2019-11-07 19:30 | NUR ---
Opening Shift Note Received report from Phong ARAUJO. Assumed care of patient, awake and alert. No S/S of distress/SOB or pain. Instructed on POC and to call for assist PRN, will continue to monitor for changes Q1hr and PRN.
--- NOTE | 2019-11-07 21:38 | NUR ---
Dr. Brett Santoyo called, received order to advance diet to full liquid in AM. Order carried out.
[2019-11-07 22:11] VITALS: BP 159/72
[2019-11-08 05:02] VITALS: BP 157/99
[2019-11-08] MEDS: metroNIDAZOLE 500MG/100ML 100 ML IV SCH ×3 (05:33→22:00)
[2019-11-08 06:05] LABS: Basophils # (auto) 0.1 10 ^3/uL (0-0.2); Basophils % (auto) 0.9 % (0.0-2.0); Eosinophils # (auto) 0.4 10 ^3/uL (0-0.8); Eosinophils % (auto) 4.9 % (0.0-7.0); Hematocrit 39.6 % (36.0-46.0); Hemoglobin 13.3 g/dL (12.2-16.2); Lymphocytes # (auto) 2.3 10 ^3/uL (0.4-5.4); Lymphocytes % (auto) 25.8 % (10.0-50.0); Mean Corpuscular Hemoglobin 31.5 pg (28.0-32.0); Mean Corpuscular Hgb Conc. 33.6 g/dL (32.0-36.0); Mean Corpuscular Volume 93.7 fL (80.0-100.0); Monocytes # (auto) 0.8 10 ^3/uL (0-1.3); Monocytes % (auto) 9.3 % (0.0-12.0); Neutrophils # (auto) 5.3 10 ^3/uL (1.6-8.6); Neutrophils % (auto) 59.1 % (37.0-80.0); Nucleated Red Blood Cells % 0.1 %; Platelet Count (auto) 340 10^3/uL (140-450); Red Blood Cells 4.22 10^6/uL (4.0-5.20); Red Cell Distribution Width 14.3 % (11.8-14.3)
[2019-11-08 06:31] LABS: Potassium 3.8 mmol/L (3.5-5.1)
[2019-11-08 06:35] LABS: BUN/Creatinine Ratio 8.2; Calcium 8.6 mg/dL (8.5-10.1)
[2019-11-08 09:00] VITALS: BP 163/79
[2019-11-08] MEDS: cefTRIAXone 1GM/50ML D5W 50 ML IV SCH (09:30)
[2019-11-08] MEDS: PANTOPRAZOLE 40 MG/10 ML VIAL INJ IV SCH (10:28)
[2019-11-08] MEDS: LISINOPRIL 20 MG TAB PO SCH (10:29)
[2019-11-08 13:00] VITALS: BP 167/81
--- NOTE | 2019-11-08 13:00 | NUR ---
DR. ZAZUETA WAS IN TO SEE PATIENT AND NOTIFIED OF PATIENTS HIGH BLOOD PRESSURE AND MD LEFT NEW ORDERS. MD ALSO TRANSFER SERVIVE TO DR. PALMER AFTER TALKING TO HIM.
[2019-11-08] MEDS ORDERED: ATENOLOL 50 MG TAB PO ONE (14:30)
--- NOTE | 2019-11-08 14:37 | NUR ---
US Guided IV insertion IV access obtained, via clean sterile technique by using ultra sound and inserting a 20 gauge catheter via the right basilic vein after one attempt. IV secured properly. No trauma to site. Patient tolerated well. Primary RN Phong notified.
[2019-11-08] MEDS ORDERED: cloNIDine HCL 0.1 MG TAB PO PRN (15:45)
--- NOTE | 2019-11-08 15:52 | NUR ---
CONTACTED DR. PALMER ABOUT PATIENT'S BP 203/73 EVEN AFTER RECEIVING ATENOLOL. PATIENT ALSO C/O NOT FEELING WELL AND DIZZY ND MD MADE AWARE OF SAME. MD LEFT NEW ORDERS. WILL CONTINUE TO MONITOR PATIENT
--- NOTE | 2019-11-08 16:02 | NUR ---
Nutrition Assessment Notes Please refer to link for full assessment notes. Est Energy needs: 3638-9717 kcals (20-23 kcal/kgBW) Est Protein needs: 64-71 gms/day (1.0-1.1 gm/kgBW) Will continue to monitor and reassess prn. Addendum: 11/08/19 at [address] Amended: Links added.
[2019-11-08 17:17] VITALS: BP 166/76
[2019-11-08] MEDS: VENLAFAXINE HCL 37.5mg XR cap PO SCH (18:42)
[2019-11-08] MEDS: Ensure HIGH Protein Chocolate 8oz Bottle PO SCH (18:43)
--- NOTE | 2019-11-08 19:25 | NUR ---
Opening Shift Note Received report from Phong ARAUJO. Assumed care of patient, awake and alert. No S/S of distress/SOB or pain. Instructed on POC and to call for assist PRN. Fall precaution measures in place, will continue to monitor for changes Q1hr and PRN.
[2019-11-08 22:00] VITALS: BP 142/72
[2019-11-08] MEDS: AMITRIPTYLINE HCL 10 MG TAB PO PRN (22:00)
[2019-11-08] MEDS: NIFEdipine ER 30 MG TAB PO SCH (22:00)
[2019-11-09] MEDS: HYDROcodone-ACET 5/325MG TAB PO PRN ×2 (03:00→09:48)
[2019-11-09 05:00] VITALS: BP 157/75
[2019-11-09] MEDS: metroNIDAZOLE 500MG/100ML 100 ML IV SCH (06:04)
--- NOTE | 2019-11-09 08:00 | NUR ---
OPENING SHIFT NOTE ASSUMED CARE OF PATIENT AWAKE AND ALERT. NO S/S OF DISTRESS NOTED OR COMPLAINTS OF PAIN. PATIENT UPDATED ON POC FOR THE DAY AND ALL QUESTIONS ANSWERED. BED IS IN LOWEST, LOCKED POSITION WITH SIDE RAILS UP X2 AND CALL LIGHT WITHIN REACH. WILL CONTINUE TO MONITOR Q1H AND PRN.
[2019-11-09 09:00] VITALS: BP 118/69
[2019-11-09] MEDS: cefTRIAXone 1GM/50ML D5W 50 ML IV SCH (09:00)
[2019-11-09] MEDS: Ensure HIGH Protein Chocolate 8oz Bottle PO SCH ×3 (09:48→17:40)
[2019-11-09] MEDS: LISINOPRIL 20 MG TAB PO SCH (09:49)
[2019-11-09] MEDS: PANTOPRAZOLE 40 MG/10 ML VIAL INJ IV SCH (09:49)
[2019-11-09] MEDS: ATENOLOL 50 MG TAB PO SCH (09:49)
--- NOTE | 2019-11-09 12:50 | NUR ---
AT BEDSIDE DR PALMER AT BEDSIDE ROUNDING ON PATIENT.
[2019-11-09 13:00] VITALS: BP 144/58
[2019-11-09 17:00] VITALS: BP 144/69
[2019-11-09] MEDS: VENLAFAXINE HCL 37.5mg XR cap PO SCH (17:40)
[2019-11-09] MEDS: metroNIDAZOLE 500 MG TAB PO SCH (17:40)
--- NOTE | 2019-11-09 19:20 | NUR ---
Opening Shift Note Received report from Shaniqua ARAUJO. Assumed care of patient, awake and alert. No S/S of distress/SOB or pain. Instructed on POC and to call for assist PRN, will continue to monitor for changes Q1hr and PRN. Addendum: 11/10/19 at 0639 by Jian Pollard RN Report received from Angela ARUAJO.
[2019-11-09 22:00] VITALS: BP 161/79
[2019-11-09] MEDS: AMITRIPTYLINE HCL 10 MG TAB PO PRN (22:21)
[2019-11-09] MEDS: NIFEdipine ER 30 MG TAB PO SCH (22:21)
[2019-11-09] MEDS: AMOXICILLIN/CLAVUL 875 MG TAB PO SCH (22:21)
[2019-11-10] MEDS: metroNIDAZOLE 500 MG TAB PO SCH ×3 (00:30→12:00)
[2019-11-10] MEDS: HYOSCYAMINE SULF 0.125 MG ODT TAB PO PRN ×2 (01:47→06:55)
[2019-11-10 05:30] VITALS: BP 148/98
[2019-11-10] MEDS: Ensure HIGH Protein Chocolate 8oz Bottle PO SCH ×3 (08:00→18:23)
[2019-11-10 09:00] VITALS: BP 150/79
[2019-11-10] MEDS: PANTOPRAZOLE 40 MG/10 ML VIAL INJ IV SCH (09:16)
[2019-11-10] MEDS: ATENOLOL 50 MG TAB PO SCH (09:17)
[2019-11-10] MEDS: LISINOPRIL 20 MG TAB PO SCH (09:17)
[2019-11-10] MEDS ORDERED: PANTOPRAZOLE 40 MG TAB PO ONE (09:30)
[2019-11-10] MEDS: AMOXICILLIN/CLAVUL 875 MG TAB PO SCH (09:48)
[2019-11-10 13:00] VITALS: BP 152/85
[2019-11-10] MEDS: HYDROcodone-ACET 5/325MG TAB PO PRN ×2 (14:04→22:28)
[2019-11-10 17:00] VITALS: BP 147/60
--- NOTE | 2019-11-10 17:50 | NUR ---
Midline Placement: Patient educated on need for midline placement. All risks and benefits explained and all questions and concerns addresses prior to procedure. 4Fr 20cm midline inserted via left brchial vein using Ultrasound. Sterile technique utilized. Blood return obtained from single lumen and flushed easily with NS using proper technique. Midline secured with saline lock; biodisc and occlusive dressing applied. Primary RN notified. Midline lot #[id number]. Internal length 20cm External length 0cm
[2019-11-10] MEDS ORDERED: PANTOPRAZOLE 40 MG/10 ML VIAL INJ IV ONE (18:00)
--- NOTE | 2019-11-10 18:20 | NUR ---
Midline obtained after unsuccessful attempt x2 for US guided IV or peripheral IV insertion. Patient having nausea on and off throughout the day and states she cannot keep pills down and that she threw up the pills she got today. Unable to medicate with IV meds d/t inability to obtain access today, as pt is very hard stick. call worker person radiology nurse able to obtained at this time after order received from Dr South. Patient medicated as ordered with IV Protonix at this time and Zofran. Will cont to monitor
[2019-11-10] MEDS: VENLAFAXINE HCL 37.5mg XR cap PO SCH (18:22)
--- NOTE | 2019-11-10 19:00 | NUR ---
Patient care endorsed endorsed care to Dayana alfonso, patient sitting up in bed in no acute distress or sob noted. Call light within reach.
--- NOTE | 2019-11-10 19:25 | NUR ---
Opening Shift Note Assumed care of patient. Patient is awake and alert, oriented X 4. No S/S of respiratory distress. Patient denies pain at this time. Bed in lowest locked position, side rails X 2 up, call light is within reach, monitor leads correctly placed. POC discussed and pt instructed to and to call for assistance as needed. Will continue to monitor for changes Q1hr and PRN.
[2019-11-10 20:00] VITALS: BP 143/75
[2019-11-10 22:00] VITALS: BP 143/75
[2019-11-10] MEDS: AMOXICILLIN TRIHYDRATE 250 MG CAP PO SCH (22:27)
[2019-11-10] MEDS: NIFEdipine ER 30 MG TAB PO SCH (22:27)
[2019-11-10] MEDS: AMITRIPTYLINE HCL 10 MG TAB PO PRN (22:28)
[2019-11-11 05:00] VITALS: BP 148/77
[2019-11-11] MEDS: AMOXICILLIN TRIHYDRATE 250 MG CAP PO SCH ×2 (05:44→14:00)
[2019-11-11] MEDS: HYOSCYAMINE SULF 0.125 MG ODT TAB PO PRN (07:04)
[2019-11-11 07:23] LABS: Albumin 2.8 g/dL (3.4-5.0); Calcium 8.1 mg/dL (8.5-10.1)
[2019-11-11 07:28] LABS: Bilirubin, Total 0.2 mg/dL (0.2-1.0); Total Protein 5.9 g/dL (6.4-8.2)
--- NOTE | 2019-11-11 07:30 | NUR ---
Opening shift note Assumed care patient in bed AOx4. No s/s of distress noted. Patient updated on POC and to call for assistance as needed. Bed in lowest, locked position. Will continue care.
[2019-11-11 07:36] LABS: Basophils # (auto) 0.1 10 ^3/uL (0-0.2); Basophils % (auto) 0.8 % (0.0-2.0); Eosinophils # (auto) 0.4 10 ^3/uL (0-0.8); Eosinophils % (auto) 3.8 % (0.0-7.0); Hematocrit 39.6 % (36.0-46.0); Hemoglobin 13.2 g/dL (12.2-16.2); Lymphocytes # (auto) 2.5 10 ^3/uL (0.4-5.4); Lymphocytes % (auto) 25.9 % (10.0-50.0); Mean Corpuscular Hemoglobin 31.5 pg (28.0-32.0); Mean Corpuscular Hgb Conc. 33.4 g/dL (32.0-36.0); Mean Corpuscular Volume 94.3 fL (80.0-100.0); Monocytes # (auto) 0.9 10 ^3/uL (0-1.3); Monocytes % (auto) 9.5 % (0.0-12.0); Neutrophils # (auto) 5.9 10 ^3/uL (1.6-8.6); Nucleated Red Blood Cells % 0.2 %; Platelet Count (auto) 198 10^3/uL (140-450); Red Cell Distribution Width 14.2 % (11.8-14.3); White Blood Cell 9.8 10^3/uL (4.4-10.8)
[2019-11-11] MEDS: Ensure HIGH Protein Chocolate 8oz Bottle PO SCH ×2 (08:00→12:00)
[2019-11-11 09:00] VITALS: BP 146/67
[2019-11-11] MEDS ORDERED: PANTOPRAZOLE 40 MG TAB PO SCH (10:00)
[2019-11-11] MEDS ORDERED: PANTOPRAZOLE 40 MG/10 ML VIAL INJ IV SCH (10:00)
[2019-11-11] MEDS ORDERED: levoFLOXacin 500 MG TAB PO SCH (10:00)
[2019-11-11] MEDS: ATENOLOL 50 MG TAB PO SCH (10:47)
[2019-11-11] MEDS: LISINOPRIL 20 MG TAB PO SCH (10:47)
--- NOTE | 2019-11-11 11:02 | NUR ---
Dr. South paged Dr. Mike paged regarding patient requesting to be D/C with Levsin. Awaiting call back.
--- NOTE | 2019-11-11 12:30 | NUR ---
page back New orders received for patient to be D/C on Levsin 0.375 mg PO QID #30. Prescription has been called in to [facility].
[2019-11-11 13:00] VITALS: BP 151/69
--- NOTE | 2019-11-11 14:30 | NUR ---
patient refused medication Patient refused 1400 scheduled antibiotic. Patient states she is waiting on her discharge paperwork and she can take the "pills" once she is home. Patient educated on importance of complying with timely medication administration. Patient continues to refuse at this time.
[2019-11-11 14:58] VITALS: BP 151/69
--- NOTE | 2019-11-11 15:00 | NUR ---
[facility] delivered medications at bedside.
--- NOTE | 2019-11-11 16:40 | NUR ---
DISCHARGE Discharge instructions given as ordered. Encourage to follow up with PMD as instructed. Appointment made with Dr. South, information provided to patient. All questions and concerns addressed. Patient verbalized understanding. IV removed with catheter intact, pressure dressing applied. Telemetry unit returned to ICU. Patient taken to vehicle via wheelchair with all personal belongings, accompanied by staff. No distress noted at time of departure.
== END 2019-11-11 16:40 | disposition home or self-care (01) | DRG 372 ==
LOC: ER 07:51 → EDBD 07:51 → TELE 07:52 → TELE-CENTR 15:44
PROVIDERS: ADMIT Internal Medicine Cardiovascular Disease; ATTEND Internal Medicine Cardiovascular Disease
DX: A04.9 Bacterial intestinal infection, unspecified (principal); K86.1 Other chronic pancreatitis; E87.1 Hypo-osmolality and hyponatremia; E44.1 Mild protein-calorie malnutrition; F32.9 Major depressive disorder, single episode, unspecified; I10 Essential (primary) hypertension; K21.9 Gastro-esophageal reflux disease without esophagitis; K57.90 Diverticulosis of intestine, part unspecified, without perforation or abscess without bleeding; D72.829 Elevated white blood cell count, unspecified; Z82.49 Family history of ischemic heart disease and other diseases of the circulatory system; Z90.710 Acquired absence of both cervix and uterus; Z90.721 Acquired absence of ovaries, unilateral; Z90.49 Acquired absence of other specified parts of digestive tract; Z88.1 Allergy status to other antibiotic agents; Z79.899 Other long term (current) drug therapy; Z68.23 Body mass index [BMI] 23.0-23.9, adult; I70.0 Atherosclerosis of aorta; M41.9 Scoliosis, unspecified; M46.00 Spinal enthesopathy, site unspecified
CPT/HCPCS: 36415; 74177; 74250; 80048; 80053; 81001; 82705; 82784; 83516; 83690; 83735; 85025; 85610; 85730; 86255; 87045; 87081; 87427; 87493; 93005; 96361; 96365; 96375; C9113; G0378; J0696; J3490

== ENCOUNTER 2019-11-13 09:43 | Inpatient (IN) | payer MEDICARE, BC ==
[~2019-11-13] VITALS: Ht 165.1 cm; Wt 63.9 kg
[~2019-11-13 09:43] MED LIST changes: +DICY20TA PO; -GLUC1CAP12 PO; -VENL37.588 PO
[2019-11-13] MEDS ORDERED: ACETAMINOPHEN 500 MG TAB PO ONE ×2 (10:45)
[2019-11-13 11:12] LABS: Basophils # (auto) 0.1 10 ^3/uL (0-0.2); Basophils % (auto) 0.5 % (0.0-2.0); Eosinophils # (auto) 0.1 10 ^3/uL (0-0.8); Eosinophils % (auto) 0.5 % (0.0-7.0); Hematocrit 40.6 % (36.0-46.0); Hemoglobin 13.5 g/dL (12.2-16.2); Lymphocytes # (auto) 0.7 10 ^3/uL (0.4-5.4); Lymphocytes % (auto) 3.4 % (10.0-50.0); Mean Corpuscular Hgb Conc. 33.2 g/dL (32.0-36.0); Mean Corpuscular Volume 93.2 fL (80.0-100.0); Monocytes % (auto) 4.9 % (0.0-12.0); Neutrophils # (auto) 18.7 10 ^3/uL (1.6-8.6); Neutrophils % (auto) 90.7 % (37.0-80.0); Platelet Count (auto) 289 10^3/uL (140-450); Red Blood Cells 4.36 10^6/uL (4.0-5.20); White Blood Cell 20.6 10^3/uL (4.4-10.8)
[2019-11-13 11:26] LABS: INR 0.97 (0.9-1.15); Partial Thromboplastin Time 25.6 sec (23.0-31.2)
[2019-11-13 11:30] LABS: Albumin 3.2 g/dL (3.4-5.0); Anion Gap 6 (5-15); Blood Urea Nitrogen 24 mg/dL (7-18); Calcium 8.8 mg/dL (8.5-10.1); Carbon Dioxide 27 mmol/L (21-32); Chloride 103 mmol/L (98-107); Glucose 111 mg/dL (74-106); Magnesium 2.4 mg/dL (1.6-2.6); Potassium 4.1 mmol/L (3.5-5.1); Sodium 136 mmol/L (136-145)
[2019-11-13 11:37] LABS: Alanine Aminotransferase 27 U/L (13-56); Alkaline Phosphatase 76 U/L (45-117); Aspartate Aminotransferase 17 U/L (15-37); Bilirubin, Total 0.5 mg/dL (0.2-1.0); GFR African American 78 mL/min; GFR Non-African American 65 mL/min; Total Protein 6.7 g/dL (6.4-8.2)
[2019-11-13 13:00] LABS: Urine Bacteria NONE SEEN /hpf (None Seen); Urine Blood Negative /uL (Negative); Urine Specific Gravity 1.019 (1.001-1.035); Urine WBC 1 /hpf (0 - 5)
[2019-11-13] MEDS ORDERED: cefTRIAXone 1GM/50ML D5W 50 ML IV ONE (14:30)
[2019-11-13] MEDS ORDERED: AZITHROMYCIN 500MG/ 250ML 250 ML IV ONE (14:30)
[2019-11-13] MEDS ORDERED: MORPHINE SULF INJ 2 MG/ML SYRINGE 1ML IV PRN ×3 (16:15→17:45)
[2019-11-13] MEDS ORDERED: NITROGLYCERIN 0.4 MG SL TAB SL PRN ×2 (16:15→17:45)
[2019-11-13] MEDS ORDERED: AMOX500C2 PO (16:45)
[2019-11-13] MEDS ORDERED: ONDA-144 PO (16:45)
[2019-11-13] MEDS ORDERED: PANT40T PO (16:47)
[2019-11-13] MEDS ORDERED: HYOS0.1269 PO (16:49)
[2019-11-13] MEDS ORDERED: HYDROcodone-ACET 5/325MG TAB PO PRN (17:45)
[2019-11-13] MEDS ORDERED: LACTATED RINGER'S 1,000 ML IV ONE (17:45)
[2019-11-13] MEDS ORDERED: VANCOMYCIN PER PHARMACY 0 MG IV SCH (17:45)
[2019-11-13] MEDS ORDERED: DOCUSATE SOD 100 MG CAP PO PRN (17:45)
[2019-11-13] MEDS ORDERED: ONDANSETRON HCL 4 MG/2 ML VIAL IV PRN (17:45)
[2019-11-13] MEDS ORDERED: LORazepam 0.5 MG TAB PO PRN (17:45)
[2019-11-13] MEDS ORDERED: ALUM & MAG HYDROX-SIMETH LIQ(MAALOX) 30 ML PO PRN (17:45)
[2019-11-13] MEDS ORDERED: ACETAMINOPHEN 325 MG TAB PO PRN (17:45)
[2019-11-13] MEDS ORDERED: ACETAMINOPHEN 500 MG TAB PO PRN (17:45)
[2019-11-13] MEDS ORDERED: NIFEdipine ER 30 MG TAB PO ONE (18:00)
[2019-11-13] MEDS ORDERED: DICYCLOMINE HCL 10 MG CAP PO PRN (18:00)
[2019-11-13] MEDS ORDERED: FAMO-12 PO (18:15)
[2019-11-13 18:26] VITALS: BP 140/57
[2019-11-13 18:30] VITALS: BP 140/57
[2019-11-13] MEDS: SODIUM CHLORIDE 0.9% 1,000 ML IV SCH (18:55)
[2019-11-13 20:10] VITALS: BP 125/55
[2019-11-13] MEDS: PIPERACILLIN-TAZOB 3.375GM 100 ML IV SCH (20:13)
[2019-11-13 20:59] LABS: Amphetamine Screen, Urine NEGATIVE (NEGATIVE); Barbiturate Scree,Urine NEGATIVE (NEGATIVE); Benzodiazephine Screen, Urine NEGATIVE (NEGATIVE); Cannabinoid Screen, Urine NEGATIVE (NEGATIVE); Cocaine Screen, Urine NEGATIVE (NEGATIVE); Opiate Scree,Urine NEGATIVE (NEGATIVE); Phencyclidine Screen, Urine NEGATIVE (NEGATIVE)
[2019-11-13] MEDS ORDERED: VANCOMYCIN 1GM/250ML 250 ML IV ONE (21:00)
[2019-11-13 21:16] LABS: Basophils # (auto) 0.1 10 ^3/uL (0-0.2); Basophils % (auto) 0.3 % (0.0-2.0); Eosinophils # (auto) 0.3 10 ^3/uL (0-0.8); Eosinophils % (auto) 1.2 % (0.0-7.0); Hemoglobin 12.8 g/dL (12.2-16.2); Lymphocytes # (auto) 1.4 10 ^3/uL (0.4-5.4); Lymphocytes % (auto) 5.3 % (10.0-50.0); Mean Corpuscular Hemoglobin 30.7 pg (28.0-32.0); Mean Corpuscular Hgb Conc. 32.8 g/dL (32.0-36.0); Mean Corpuscular Volume 93.7 fL (80.0-100.0); Monocytes # (auto) 1.2 10 ^3/uL (0-1.3); Monocytes % (auto) 4.4 % (0.0-12.0); Neutrophils % (auto) 88.8 % (37.0-80.0); Platelet Count (auto) 280 10^3/uL (140-450); Red Blood Cells 4.16 10^6/uL (4.0-5.20); Red Cell Distribution Width 14.6 % (11.8-14.3); White Blood Cell 27.1 10^3/uL (4.4-10.8)
[2019-11-13 21:33] LABS: BUN/Creatinine Ratio 23.7; Calcium 8.9 mg/dL (8.5-10.1); Magnesium 2.4 mg/dL (1.6-2.6)
[2019-11-13 21:48] LABS: CRP High Sensitivity 8.41 mg/dL (< 0.3)
[2019-11-13 21:49] LABS: Bilirubin, Total 0.5 mg/dL (0.2-1.0); Total Protein 6.6 g/dL (6.4-8.2)
[2019-11-13 21:50] LABS: Cholesterol 172 mg/dL (< 200); HDL Cholesterol 71 mg/dL (40-59); LDL Cholesterol 89 mg/dL (< 100); Triglycerides 97 mg/dL (< 150)
[2019-11-13 21:51] VITALS: BP 140/57
[2019-11-13] MEDS ORDERED: BUDESONIDE (INHALATION) 180 MCG IH IN SCH (22:00)
[2019-11-13] MEDS ORDERED: FAMOTIDINE (10MG/ML) 2ML VL IV SCH (22:00)
[2019-11-13] MEDS ORDERED: ALBUTEROL SULF HFA 90MCG INH 200DOSE IN SCH (22:00)
[2019-11-13] MEDS: AMITRIPTYLINE HCL 10 MG TAB PO SCH (22:59)
[2019-11-14] VITALS (7 sets, daily range): BP systolic 104–156; BP diastolic 50–79
[2019-11-14] MEDS: PIPERACILLIN-TAZOB 3.375GM 100 ML IV SCH ×3 (00:32→11:47)
[2019-11-14 06:57] LABS: Basophils # (auto) 0.1 10 ^3/uL (0-0.2); Basophils % (auto) 0.3 % (0.0-2.0); Eosinophils # (auto) 0.7 10 ^3/uL (0-0.8); Eosinophils % (auto) 2.8 % (0.0-7.0); Hemoglobin 12.3 g/dL (12.2-16.2); Lymphocytes # (auto) 2.3 10 ^3/uL (0.4-5.4); Lymphocytes % (auto) 8.6 % (10.0-50.0); Mean Corpuscular Hemoglobin 31.6 pg (28.0-32.0); Mean Corpuscular Hgb Conc. 33.3 g/dL (32.0-36.0); Monocytes # (auto) 1.1 10 ^3/uL (0-1.3); Monocytes % (auto) 4.1 % (0.0-12.0); Neutrophils # (auto) 22.1 10 ^3/uL (1.6-8.6); Neutrophils % (auto) 84.2 % (37.0-80.0); Platelet Count (auto) 270 10^3/uL (140-450); Red Cell Distribution Width 14.4 % (11.8-14.3); White Blood Cell 26.3 10^3/uL (4.4-10.8)
[2019-11-14] MEDS: SODIUM CHLORIDE 0.9% 1,000 ML IV SCH (07:05)
[2019-11-14 07:18] LABS: Alanine Aminotransferase 21 U/L (13-56); Albumin 2.8 g/dL (3.4-5.0); Anion Gap 6 (5-15); Aspartate Aminotransferase 17 U/L (15-37); BUN/Creatinine Ratio 15.2; Blood Urea Nitrogen 12 mg/dL (7-18); Carbon Dioxide 24 mmol/L (21-32); Chloride 106 mmol/L (98-107); GFR African American 90 mL/min; GFR Non-African American 74 mL/min; Glucose 96 mg/dL (74-106); Potassium 3.9 mmol/L (3.5-5.1); Sodium 136 mmol/L (136-145)
[2019-11-14 07:21] LABS: Alkaline Phosphatase 68 U/L (45-117); Bilirubin, Total 0.7 mg/dL (0.2-1.0); Total Protein 6.4 g/dL (6.4-8.2)
[2019-11-14] MEDS ORDERED: IOHEXOL 350 MG/ML 100ML IJ ONE (09:56)
[2019-11-14] MEDS: METOPROLOL SUCCINATE XL 50 MG TAB PO SCH (10:00)
[2019-11-14] MEDS ORDERED: ASCORBIC ACID 1,000 MG TAB PO SCH (10:00)
[2019-11-14] MEDS ORDERED: CHOLECALCIFEROL (VITD3) 2,000 UNIT CAP PO SCH (10:00)
[2019-11-14] MEDS: NIFEdipine ER 30 MG TAB PO SCH (10:00)
[2019-11-14] MEDS ORDERED: ENOXAPARIN SOD 40 MG/0.4 ML SYRINGE SC SCH (10:00)
[2019-11-14] MEDS: LISINOPRIL 20 MG TAB PO SCH (10:39)
[2019-11-14] MEDS ORDERED: ACETAMINOPHEN 325 MG TAB PO PRN (18:00)
[2019-11-14] MEDS ORDERED: VANCOMYCIN 750mg/250ml 250 ML IV SCH (21:00)
[2019-11-14] MEDS: ENOXAPARIN SOD 60 MG/0.6 ML SYRINGE SC SCH (21:46)
[2019-11-14] MEDS: AMITRIPTYLINE HCL 10 MG TAB PO SCH (21:46)
[2019-11-15 05:00] VITALS: BP 143/79
[2019-11-15 05:59] LABS: Basophils # (auto) 0.1 10 ^3/uL (0-0.2); Basophils % (auto) 0.6 % (0.0-2.0); Eosinophils # (auto) 0.6 10 ^3/uL (0-0.8); Eosinophils % (auto) 5.1 % (0.0-7.0); Hematocrit 37.2 % (36.0-46.0); Hemoglobin 12.5 g/dL (12.2-16.2); Lymphocytes # (auto) 2.6 10 ^3/uL (0.4-5.4); Lymphocytes % (auto) 22.9 % (10.0-50.0); Mean Corpuscular Hemoglobin 31.6 pg (28.0-32.0); Mean Corpuscular Hgb Conc. 33.6 g/dL (32.0-36.0); Mean Corpuscular Volume 94.2 fL (80.0-100.0); Monocytes # (auto) 0.9 10 ^3/uL (0-1.3); Monocytes % (auto) 7.7 % (0.0-12.0); Neutrophils # (auto) 7.3 10 ^3/uL (1.6-8.6); Neutrophils % (auto) 63.7 % (37.0-80.0); Nucleated Red Blood Cells % 0.1 %; Platelet Count (auto) 285 10^3/uL (140-450); Red Blood Cells 3.95 10^6/uL (4.0-5.20); Red Cell Distribution Width 14.7 % (11.8-14.3); White Blood Cell 11.4 10^3/uL (4.4-10.8)
[2019-11-15 06:12] LABS: Potassium 3.9 mmol/L (3.5-5.1)
[2019-11-15 06:20] LABS: Calcium 8.7 mg/dL (8.5-10.1)
[2019-11-15 09:04] VITALS: BP 163/87
[2019-11-15] MEDS: METOPROLOL SUCCINATE XL 50 MG TAB PO SCH (09:26)
[2019-11-15] MEDS: ENOXAPARIN SOD 60 MG/0.6 ML SYRINGE SC SCH (09:26)
[2019-11-15] MEDS: LISINOPRIL 20 MG TAB PO SCH (09:27)
[2019-11-15] MEDS: NIFEdipine ER 30 MG TAB PO SCH (09:28)
[2019-11-15 13:00] VITALS: BP 167/73
[2019-11-15 13:37] VITALS: BP 167/73
[2019-11-15 14:59] VITALS: BP 162/97
[2019-11-15 17:00] VITALS: BP 143/83
[2019-11-15] MEDS ORDERED: APIXABAN 5 MG TAB PO SCH (22:00)
[2019-11-22] MEDS ORDERED: APIXABAN 5 MG TAB PO SCH (22:00)
== END 2019-11-15 17:31 | disposition home or self-care (01) | DRG 175 ==
LOC: ER 09:43 → EDBD 09:43 → TELE 09:44 → TELE-EAST 18:30 → TELE-WESTW 11-14 17:41
PROVIDERS: ADMIT Hospitalist; ATTEND Internal Medicine
DX: I26.99 Other pulmonary embolism without acute cor pulmonale (principal); J96.01 Acute respiratory failure with hypoxia; E44.0 Moderate protein-calorie malnutrition; A09 Infectious gastroenteritis and colitis, unspecified; Z68.1 Body mass index [BMI] 19.9 or less, adult; R65.10 Systemic inflammatory response syndrome (SIRS) of non-infectious origin without acute organ dysfunction; F32.9 Major depressive disorder, single episode, unspecified; K21.9 Gastro-esophageal reflux disease without esophagitis; J44.9 Chronic obstructive pulmonary disease, unspecified; F17.210 Nicotine dependence, cigarettes, uncomplicated; M19.90 Unspecified osteoarthritis, unspecified site; K57.90 Diverticulosis of intestine, part unspecified, without perforation or abscess without bleeding; Z20.828 Contact with and (suspected) exposure to other viral communicable diseases; K58.9 Irritable bowel syndrome, unspecified; I10 Essential (primary) hypertension; Z90.49 Acquired absence of other specified parts of digestive tract; Z90.710 Acquired absence of both cervix and uterus; Z88.1 Allergy status to other antibiotic agents
CPT/HCPCS: 36415; 36600; 71045; 71275; 80048; 80053; 80061; 80307; 81001; 82728; 82805; 83036; 83605; 83615; 83735; 84443; 84484; 85025; 85379; 85610; 85730; 86141; 87040; 87070; 87081; 87086; 87426; 87804; 87880; 93005; 96361; 96365; 96367; G0378; J0696; J2543; J3490

== ENCOUNTER 2019-11-17 13:25 | Inpatient (IN) | payer MEDICARE, BC ==
[~2019-11-17] VITALS: Ht 165.1 cm; Wt 59.0 kg
[~2019-11-17 13:25] MED LIST changes: +AMOX500C2 PO; +HYOS0.1269 PO; +ONDA-144 PO; +PANT40T PO
[2019-11-17 13:57] LABS: Basophils # (auto) 0.1 10 ^3/uL (0-0.2); Basophils % (auto) 0.4 % (0.0-2.0); Eosinophils # (auto) 0.5 10 ^3/uL (0-0.8); Eosinophils % (auto) 2.9 % (0.0-7.0); Hematocrit 39.2 % (36.0-46.0); Hemoglobin 12.8 g/dL (12.2-16.2); Lymphocytes # (auto) 1.5 10 ^3/uL (0.4-5.4); Lymphocytes % (auto) 8.3 % (10.0-50.0); Mean Corpuscular Hemoglobin 30.3 pg (28.0-32.0); Mean Corpuscular Hgb Conc. 32.6 g/dL (32.0-36.0); Mean Corpuscular Volume 93.1 fL (80.0-100.0); Monocytes # (auto) 1.2 10 ^3/uL (0-1.3); Monocytes % (auto) 6.6 % (0.0-12.0); Neutrophils # (auto) 14.9 10 ^3/uL (1.6-8.6); Neutrophils % (auto) 81.8 % (37.0-80.0); Platelet Count (auto) 369 10^3/uL (140-450); Red Blood Cells 4.21 10^6/uL (4.0-5.20); Red Cell Distribution Width 13.9 % (11.8-14.3); White Blood Cell 18.2 10^3/uL (4.4-10.8)
[2019-11-17 14:29] LABS: Albumin 3.1 g/dL (3.4-5.0); Anion Gap 8 (5-15); Blood Urea Nitrogen 12 mg/dL (7-18); Calcium 8.9 mg/dL (8.5-10.1); Carbon Dioxide 24 mmol/L (21-32); Chloride 105 mmol/L (98-107); Glucose 112 mg/dL (74-106); Sodium 137 mmol/L (136-145)
[2019-11-17 14:34] LABS: Alanine Aminotransferase 27 U/L (13-56); Alkaline Phosphatase 80 U/L (45-117); Aspartate Aminotransferase 24 U/L (15-37); BUN/Creatinine Ratio 16.9; Bilirubin, Total 0.4 mg/dL (0.2-1.0); GFR African American 101 mL/min; GFR Non-African American 84 mL/min; Total Protein 7.2 g/dL (6.4-8.2)
[2019-11-17] MEDS ORDERED: IOHEXOL 350 MG/ML 100ML IJ ONE (15:57)
[2019-11-17] MEDS ORDERED: PROMETHAZINE-DM 5 ML ORAL SYRUP PO ONE (16:45)
[2019-11-17] MEDS ORDERED: methylPREDNISolone SOD SUCC 125 MG/2 ML VL IV ONE (18:30)
[2019-11-17] MEDS ORDERED: ALBUTEROL SULF 2.5 MG/0.5ML(0.5%) NEB SOLN NEB ONE (18:30)
[2019-11-17] MEDS ORDERED: IPRATROPIUM BROM 0.5 MG/2.5ML INH SOL NEB ONE (18:30)
[2019-11-17 18:44] LABS: Urine Bacteria FEW /hpf (None Seen); Urine Blood Negative /uL (Negative); Urine Specific Gravity 1.015 (1.001-1.035); Urine WBC <1 /hpf (0 - 5)
[2019-11-17] MEDS ORDERED: NITROGLYCERIN 0.4 MG SL TAB SL PRN (19:15)
[2019-11-17] MEDS ORDERED: guaiFENesin 200 MG/10 ML UD PO PRN (19:15)
[2019-11-17] MEDS ORDERED: MORPHINE SULF INJ 2 MG/ML SYRINGE 1ML IV PRN ×2 (19:15)
[2019-11-17] MEDS ORDERED: ONDANSETRON HCL 4 MG/2 ML VIAL IV PRN (19:15)
[2019-11-17] MEDS ORDERED: AMITRIPTYLINE HCL 10 MG TAB PO PRN (19:15)
[2019-11-17] MEDS ORDERED: traMADol HCL 50 MG TAB PO PRN (19:15)
[2019-11-17] MEDS ORDERED: SODIUM CHLORIDE 0.9% 1,000 ML IV SCH (19:15)
[2019-11-17 19:23] VITALS: BP 148/72
[2019-11-17] MEDS: ALBUTEROL SULF 2.5 MG/0.5ML(0.5%) NEB SOLN NEB PRN (21:44)
[2019-11-17] MEDS: IPRATROPIUM BROM 0.5 MG/2.5ML INH SOL NEB PRN (21:44)
[2019-11-17] MEDS: APIXABAN 5 MG TAB PO SCH (21:49)
[2019-11-17] MEDS: metroNIDAZOLE 500MG/100ML 100 ML IV SCH (21:49)
[2019-11-18] MEDS: metroNIDAZOLE 500MG/100ML 100 ML IV SCH (06:08)
[2019-11-18] MEDS ORDERED: FAMOTIDINE 20 MG TAB PO SCH (07:00)
[2019-11-18] MEDS ORDERED: cefTRIAXone 1GM/50ML D5W 50 ML IV SCH (09:00)
[2019-11-18] MEDS: APIXABAN 5 MG TAB PO SCH (10:00)
[2019-11-18] MEDS ORDERED: FLORASTOR (S. BOULARDII) 250 MG CAP PO SCH (10:00)
[2019-11-18] MEDS ORDERED: LISINOPRIL 20 MG TAB PO SCH (10:00)
[2019-11-18] MEDS ORDERED: PANTOPRAZOLE 40 MG TAB PO SCH (10:00)
[2019-11-18] MEDS ORDERED: ATENOLOL 50 MG TAB PO SCH (10:00)
[2019-11-18] MEDS: ALBUTEROL SULF 2.5 MG/0.5ML(0.5%) NEB SOLN NEB PRN (11:22)
[2019-11-18] MEDS: IPRATROPIUM BROM 0.5 MG/2.5ML INH SOL NEB PRN (11:23)
[2019-11-18 14:36] VITALS: BP 172/75
== END 2019-11-18 14:18 | disposition home or self-care (01) | DRG 206 ==
LOC: ER 13:25 → EDBD 13:25 → TELE 13:26 → UNDODEPER 11-18 14:26
PROVIDERS: ADMIT Nurse Practitioner Acute Care; ATTEND Internal Medicine Cardiovascular Disease
DX: M94.0 Chondrocostal junction syndrome [Tietze] (principal); J44.1 Chronic obstructive pulmonary disease with (acute) exacerbation; J45.901 Unspecified asthma with (acute) exacerbation; I25.10 Atherosclerotic heart disease of native coronary artery without angina pectoris; I10 Essential (primary) hypertension; F32.9 Major depressive disorder, single episode, unspecified; D72.829 Elevated white blood cell count, unspecified; G47.00 Insomnia, unspecified; Z79.899 Other long term (current) drug therapy; Z82.49 Family history of ischemic heart disease and other diseases of the circulatory system; Z86.711 Personal history of pulmonary embolism; Z86.718 Personal history of other venous thrombosis and embolism; Z90.710 Acquired absence of both cervix and uterus; Z90.49 Acquired absence of other specified parts of digestive tract; K21.9 Gastro-esophageal reflux disease without esophagitis; Z79.891 Long term (current) use of opiate analgesic; Z79.01 Long term (current) use of anticoagulants; Z83.511 Family history of glaucoma; R09.02 Hypoxemia
CPT/HCPCS: 36415; 71275; 80053; 81001; 84484; 85025; 87040; 87493; 93005; 93306; 94640; G0378; J0696; J3490

== ENCOUNTER → 2019-11-20 | Outpatient (CLI) | payer MEDICARE, BC | END | disposition home or self-care (01) | LOC: Rad HDHVI 11:38 | PROVIDERS: ATTEND Internal Medicine Cardiovascular Disease | DX: R94.4 Abnormal results of kidney function studies (principal); R06.02 Shortness of breath; R05 Cough | CPT/HCPCS: 36415; 71046; 82565 ==

== ENCOUNTER 2019-12-16 13:27 | Inpatient (IN) | payer MEDICARE, BC ==
[~2019-12-16] VITALS: Ht 165.1 cm; Wt 66.8 kg
[2019-12-16 14:36] LABS: Basophils # (auto) 0.1 10 ^3/uL (0-0.2); Basophils % (auto) 0.6 % (0.0-2.0); Eosinophils # (auto) 0.1 10 ^3/uL (0-0.8); Hematocrit 40.6 % (36.0-46.0); Hemoglobin 13.2 g/dL (12.2-16.2); Lymphocytes # (auto) 1.7 10 ^3/uL (0.4-5.4); Lymphocytes % (auto) 15.2 % (10.0-50.0); Mean Corpuscular Hemoglobin 31.1 pg (28.0-32.0); Mean Corpuscular Hgb Conc. 32.6 g/dL (32.0-36.0); Mean Corpuscular Volume 95.4 fL (80.0-100.0); Monocytes # (auto) 0.8 10 ^3/uL (0-1.3); Monocytes % (auto) 7.6 % (0.0-12.0); Neutrophils # (auto) 8.4 10 ^3/uL (1.6-8.6); Neutrophils % (auto) 75.6 % (37.0-80.0); Nucleated Red Blood Cells % 0.1 %; Platelet Count (auto) 261 10^3/uL (140-450); Red Blood Cells 4.25 10^6/uL (4.0-5.20); Red Cell Distribution Width 15.1 % (11.8-14.3); White Blood Cell 11.1 10^3/uL (4.4-10.8)
[2019-12-16 14:55] LABS: Albumin 3.4 g/dL (3.4-5.0); Anion Gap 7 (5-15); Blood Urea Nitrogen 18 mg/dL (7-18); Calcium 9.1 mg/dL (8.5-10.1); Carbon Dioxide 27 mmol/L (21-32); Chloride 103 mmol/L (98-107); Glucose 97 mg/dL (74-106); Magnesium 2.2 mg/dL (1.6-2.6); Potassium 4.4 mmol/L (3.5-5.1); Sodium 137 mmol/L (136-145)
[2019-12-16 14:58] LABS: Alanine Aminotransferase 32 U/L (13-56); Aspartate Aminotransferase 41 U/L (15-37); BUN/Creatinine Ratio 19.8; GFR African American 76 mL/min; GFR Non-African American 63 mL/min
[2019-12-16 15:01] LABS: Alkaline Phosphatase 63 U/L (45-117); Bilirubin, Total 0.3 mg/dL (0.2-1.0); Total Protein 7.4 g/dL (6.4-8.2)
[2019-12-16] MEDS ORDERED: traMADol HCL 50 MG TAB PO PRN (18:15)
[2019-12-16] MEDS ORDERED: NITROGLYCERIN 0.4 MG SL TAB SL PRN (18:15)
[2019-12-16] MEDS ORDERED: MORPHINE SULF INJ 2 MG/ML SYRINGE 1ML IV PRN ×2 (18:15)
[2019-12-16] MEDS ORDERED: ONDANSETRON HCL 4 MG/2 ML VIAL IV PRN (18:15)
[2019-12-16] MEDS ORDERED: HYDROcodone-ACET 5/325MG TAB PO PRN (18:15)
[2019-12-16] MEDS ORDERED: ACETAMINOPHEN 500 MG TAB PO PRN (18:15)
[2019-12-16] MEDS: NITROGLYCERIN 0.4MG/HR TOPICAL PATCH TD SCH (18:35)
[2019-12-16 22:00] VITALS: BP 161/90
[2019-12-16] MEDS ORDERED: ONDANSETRON ODT 4 MG TAB PO SCH (22:00)
--- NOTE | 2019-12-16 22:15 | NUR ---
Telemetry admit from ER FERM,JORDON DELVALLE admitted to Telemetry unit after NO SBAR received FROM ER NURSE. Patient oriented to Dario ma RN, [facility], 298 room, B bed, and unit policies regarding patient care and visiting hours. Patient now on continuous telemetry monitoring, tele box # 73 and telemetry reading on arrival to unit is sinus rhythm. Patient placed on bedside oxygen, weighed by bed scale and encouraged to call if they need something. All questions and concerns addressed, patient verbalized understanding. Addendum: 12/17/19 at 0347 by Dario Solomon RN rhythm confirmed at arrival with pest technician.
[2019-12-16 22:35] VITALS: BP 161/90
[2019-12-16] MEDS: ATORVASTATIN 20 MG TAB PO SCH (23:02)
[2019-12-16] MEDS: APIXABAN 2.5 MG TAB PO SCH (23:03)
[2019-12-16] MEDS: METOPROLOL TARTRATE 25 MG TAB PO SCH (23:03)
[2019-12-16] MEDS: AMITRIPTYLINE HCL 10 MG TAB PO PRN (23:09)
[2019-12-16] MEDS: traMADol HCL 50 MG TAB PO PRN (23:09)
[2019-12-17 05:00] VITALS: BP 140/76
[2019-12-17] MEDS: FAMOTIDINE 20 MG TAB PO SCH (06:32)
[2019-12-17 07:09] LABS: Basophils # (auto) 0.1 10 ^3/uL (0-0.2); Basophils % (auto) 0.7 % (0.0-2.0); Eosinophils # (auto) 0.4 10 ^3/uL (0-0.8); Eosinophils % (auto) 4.1 % (0.0-7.0); Hematocrit 35.5 % (36.0-46.0); Hemoglobin 11.8 g/dL (12.2-16.2); Lymphocytes # (auto) 2.2 10 ^3/uL (0.4-5.4); Lymphocytes % (auto) 21.8 % (10.0-50.0); Mean Corpuscular Hemoglobin 31.5 pg (28.0-32.0); Mean Corpuscular Hgb Conc. 33.4 g/dL (32.0-36.0); Mean Corpuscular Volume 94.5 fL (80.0-100.0); Monocytes # (auto) 0.8 10 ^3/uL (0-1.3); Monocytes % (auto) 7.9 % (0.0-12.0); Neutrophils # (auto) 6.7 10 ^3/uL (1.6-8.6); Neutrophils % (auto) 65.5 % (37.0-80.0); Nucleated Red Blood Cells % 0.1 %; Platelet Count (auto) 238 10^3/uL (140-450); Red Blood Cells 3.75 10^6/uL (4.0-5.20); Red Cell Distribution Width 15.2 % (11.8-14.3); White Blood Cell 10.2 10^3/uL (4.4-10.8)
[2019-12-17 07:28] LABS: INR 0.95 (0.9-1.15)
[2019-12-17 07:37] LABS: BUN/Creatinine Ratio 19.3; Calcium 8.9 mg/dL (8.5-10.1); Potassium 4.9 mmol/L (3.5-5.1)
--- NOTE | 2019-12-17 08:15 | NUR ---
Opening Shift Note Assumed care of patient, awake, alert, and oriented. No S/S of distress/SOB or pain. Bed in lowest/locked position, bed rails up x2, call light within reach. Instructed on POC and to call for assist PRN. Will continue to monitor for changes Q1hr and PRN.
[2019-12-17] MEDS: ASPirin-EC 81 mg tab PO SCH (09:18)
[2019-12-17] MEDS: APIXABAN 2.5 MG TAB PO SCH ×2 (09:18→22:26)
[2019-12-17] MEDS: LISINOPRIL 20 MG TAB PO SCH (09:18)
[2019-12-17] MEDS: PANTOPRAZOLE 40 MG TAB PO SCH (09:18)
[2019-12-17] MEDS: METOPROLOL TARTRATE 25 MG TAB PO SCH ×2 (09:19→22:26)
[2019-12-17] MEDS: NITROGLYCERIN 0.4MG/HR TOPICAL PATCH TD SCH (09:20)
[2019-12-17 09:35] VITALS: BP 160/80
[2019-12-17 13:00] VITALS: BP 143/76
[2019-12-17 16:50] VITALS: BP 129/78
--- NOTE | 2019-12-17 19:30 | NUR ---
Opening Shift Note Assumed care of patient, awake and alert. No S/S of distress/SOB or pain. Instructed on POC and to call for assist PRN, will continue to monitor for changes Q1hr and PRN.
[2019-12-17 22:00] VITALS: BP 142/73
[2019-12-17] MEDS: ATORVASTATIN 20 MG TAB PO SCH (22:25)
[2019-12-17] MEDS: AMITRIPTYLINE HCL 10 MG TAB PO PRN (23:02)
[2019-12-18] MEDS ORDERED: LACTULOSE 20Gm/30ML SOLN PO PRN (00:15)
[2019-12-18 05:00] VITALS: BP 142/88
[2019-12-18] MEDS: FAMOTIDINE 20 MG TAB PO SCH (06:21)
--- NOTE | 2019-12-18 07:30 | NUR ---
Opening Shift Note Assumed care of patient, awake and alert. No S/S of distress/SOB, patient reports 5/10 abdominal pain, will medicate per MD orders. Instructed on POC and to call for assistance PRN, patient verbalized understanding. Bed locked in lowest position, side rails up x2, call light within reach. Will continue to monitor for changes Q1hr and PRN.
[2019-12-18] MEDS: traMADol HCL 50 MG TAB PO PRN (08:20)
[2019-12-18 09:00] VITALS: BP 149/86
[2019-12-18] MEDS: NITROGLYCERIN 0.4MG/HR TOPICAL PATCH TD SCH (09:35)
[2019-12-18] MEDS: METOPROLOL TARTRATE 25 MG TAB PO SCH (09:36)
[2019-12-18] MEDS: PANTOPRAZOLE 40 MG TAB PO SCH (09:36)
[2019-12-18] MEDS: APIXABAN 2.5 MG TAB PO SCH (09:36)
[2019-12-18] MEDS: ASPirin-EC 81 mg tab PO SCH (09:36)
[2019-12-18] MEDS: LISINOPRIL 20 MG TAB PO SCH (09:37)
[2019-12-18 13:00] VITALS: BP 153/82
[2019-12-18 17:00] VITALS: BP 121/76
--- NOTE | 2019-12-18 17:40 | NUR ---
DISCHARGE HOME Discharge instructions given as ordered. Encourage to follow up with PMD as instructed. All questions and concerns addressed. Patient verbalized understanding. Medication reconciliation form completed and copy given to patient. IV removed with catheter intact, pressure dressing applied. Telemetry unit returned to ICU. Patient taken to vehicle via wheelchair with all personal belongings, accompanied by staff. Also, educated family member on discharge instructions. No distress noted at time of departure.
== END 2019-12-18 17:40 | disposition home or self-care (01) | DRG 206 ==
LOC: ER 13:27 → EDBD 13:27 → TELE 13:28 → TELE-WESTW 22:17
PROVIDERS: ADMIT Nurse Practitioner Acute Care; ATTEND Internal Medicine Cardiovascular Disease
DX: M94.0 Chondrocostal junction syndrome [Tietze] (principal); R07.89 Other chest pain; D64.9 Anemia, unspecified; I10 Essential (primary) hypertension; F32.9 Major depressive disorder, single episode, unspecified; J44.9 Chronic obstructive pulmonary disease, unspecified; K21.9 Gastro-esophageal reflux disease without esophagitis; H26.9 Unspecified cataract; E78.5 Hyperlipidemia, unspecified; G47.00 Insomnia, unspecified; Z79.01 Long term (current) use of anticoagulants; Z79.899 Other long term (current) drug therapy; Z86.711 Personal history of pulmonary embolism; Z82.49 Family history of ischemic heart disease and other diseases of the circulatory system; Z90.710 Acquired absence of both cervix and uterus; Z90.49 Acquired absence of other specified parts of digestive tract; Z83.511 Family history of glaucoma
CPT/HCPCS: 36415; 71045; 78582; 80048; 80053; 83735; 83880; 84484; 85025; 85610; 85730; 86141; 87081; 93005; G0378

== ENCOUNTER → 2019-12-30 | Outpatient (CLI) | payer MEDICARE, BC | END | disposition home or self-care (01) | LOC: Rad HDHVI 13:10 | PROVIDERS: ATTEND Internal Medicine Cardiovascular Disease | DX: I08.3 Combined rheumatic disorders of mitral, aortic and tricuspid valves (principal); I20.0 Unstable angina; R00.1 Bradycardia, unspecified | CPT/HCPCS: 93306 ==

== ENCOUNTER 2020-01-22 14:58 | Emergency (ER) | payer MEDICARE, BC ==
[~2020-01-22] VITALS: Ht 160 cm; Wt 63.5 kg
[2020-01-22 16:04] LABS: Alanine Aminotransferase 32 U/L (13-56); Albumin 3.1 g/dL (3.4-5.0); Anion Gap 7 (5-15); BUN/Creatinine Ratio 15.9; Blood Urea Nitrogen 17 mg/dL (7-18); Calcium 8.4 mg/dL (8.5-10.1); Carbon Dioxide 30 mmol/L (21-32); Chloride 99 mmol/L (98-107); GFR African American 63 mL/min; GFR Non-African American 52 mL/min; Glucose 118 mg/dL (74-106); Sodium 136 mmol/L (136-145)
[2020-01-22 16:09] LABS: Alkaline Phosphatase 89 U/L (45-117); Aspartate Aminotransferase 32 U/L (15-37); Bilirubin, Total 0.4 mg/dL (0.2-1.0); Total Protein 7.2 g/dL (6.4-8.2)
[2020-01-22 16:34] LABS: Basophils # (auto) 0 10 ^3/uL (0-0.2); Basophils % (auto) 0.2 % (0.0-2.0); Eosinophils # (auto) 0.1 10 ^3/uL (0-0.8); Eosinophils % (auto) 0.9 % (0.0-7.0); Hematocrit 46.2 % (36.0-46.0); Hemoglobin 15.3 g/dL (12.2-16.2); Lymphocytes # (auto) 1.9 10 ^3/uL (0.4-5.4); Lymphocytes % (auto) 22.1 % (10.0-50.0); Mean Corpuscular Hemoglobin 31.7 pg (28.0-32.0); Mean Corpuscular Hgb Conc. 33.1 g/dL (32.0-36.0); Mean Corpuscular Volume 95.8 fL (80.0-100.0); Monocytes # (auto) 0.8 10 ^3/uL (0-1.3); Monocytes % (auto) 9.1 % (0.0-12.0); Neutrophils % (auto) 67.7 % (37.0-80.0); Platelet Count (auto) 306 10^3/uL (140-450); Red Blood Cells 4.83 10^6/uL (4.0-5.20); Red Cell Distribution Width 14.8 % (11.8-14.3); White Blood Cell 8.8 10^3/uL (4.4-10.8)
[2020-01-22 17:46] LABS: INR 0.93 (0.9-1.15); Partial Thromboplastin Time 23.5 sec (23.0-31.2)
[2020-01-22 19:44] VITALS: BP 146/82
== END 2020-01-22 21:18 | disposition admitted as inpatient to this hospital (09) ==
LOC: ER 14:58 → EDBD 14:58 → ER 21:18
DX: U07.1 COVID-19 (principal); R55 Syncope and collapse
CPT/HCPCS: 36415; 70450; 71045; 74176; 80053; 84484; 85025; 85610; 85730; 87426; 93005

== ENCOUNTER → 2020-03-12 | Outpatient (CLI) | payer MEDICARE, BC ==
[~2020-03-12] MED LIST changes: -HYOS0.1269 PO; +HYOS0.1293 PO
== END | disposition home or self-care (01) ==
LOC: LAB 10:44
PROVIDERS: ATTEND Internal Medicine Cardiovascular Disease
DX: I50.23 Acute on chronic systolic (congestive) heart failure (principal)
CPT/HCPCS: 83880

== ENCOUNTER 2020-04-26 22:16 | Emergency (ER) | payer MEDICARE, BC ==
[~2020-04-26] VITALS: Ht 165.1 cm; Wt 59.0 kg
[2020-04-26] MEDS ORDERED: cloNIDine HCL 0.1 MG TAB PO ONE (23:15)
[2020-04-27 00:25] VITALS: BP 152/62
[2020-04-27] MEDS ORDERED: cefTRIAXone SOD 1,000 MG VL IM ONE ×2 (00:30)
== END 2020-04-27 01:05 | disposition home or self-care (01) ==
LOC: ER 22:17
DX: S61.452A Open bite of left hand, initial encounter (principal); L03.114 Cellulitis of left upper limb; W55.01XA Bitten by cat, initial encounter; Y93.89 Activity, other specified; Y92.89 Other specified places as the place of occurrence of the external cause; Y99.8 Other external cause status
CPT/HCPCS: 73130; 96372; 99283; J0696

== ENCOUNTER → 2020-07-20 | Outpatient (CLI) | payer MEDICARE, BC ==
[~2020-07-20] MED LIST changes: -AMIT PO; +AMIT10TA8 PO
[2020-07-20 15:30] LABS: Urine Blood Negative /uL (Negative); Urine Specific Gravity 1.007 (1.001-1.035)
== END | disposition home or self-care (01) ==
LOC: LAB 12:42
PROVIDERS: ATTEND Internal Medicine Cardiovascular Disease
DX: N39.0 Urinary tract infection, site not specified (principal)
CPT/HCPCS: 81003

== ENCOUNTER 2020-10-03 10:57 | Emergency (ER) | payer MEDICARE, BC ==
[~2020-10-03] VITALS: Ht 162.6 cm; Wt 56.7 kg
[2020-10-03 11:05] VITALS: BP 95/58
[2020-10-03 12:27] LABS: Basophils # (auto) 0.1 10 ^3/uL (0-0.2); Basophils % (auto) 0.7 % (0.0-2.0); Eosinophils # (auto) 0.3 10 ^3/uL (0-0.8); Eosinophils % (auto) 3.5 % (0.0-7.0); Hematocrit 39.3 % (36.0-46.0); Mean Corpuscular Hemoglobin 30.9 pg (28.0-32.0); Mean Corpuscular Hgb Conc. 33.2 g/dL (32.0-36.0); Monocytes # (auto) 0.8 10 ^3/uL (0-1.3); Monocytes % (auto) 9.6 % (0.0-12.0); Neutrophils # (auto) 5.5 10 ^3/uL (1.6-8.6); Neutrophils % (auto) 63.2 % (37.0-80.0); Nucleated Red Blood Cells % 0.1 %; Red Blood Cells 4.23 10^6/uL (4.0-5.20); Red Cell Distribution Width 13.8 % (11.8-14.3); White Blood Cell 8.8 10^3/uL (4.4-10.8)
[2020-10-03 12:56] LABS: Albumin 2.9 g/dL (3.4-5.0); Anion Gap 6 (5-15); Blood Urea Nitrogen 23 mg/dL (7-18); Calcium 8.7 mg/dL (8.5-10.1); Carbon Dioxide 25 mmol/L (21-32); Chloride 106 mmol/L (98-107); Glucose 77 mg/dL (74-106); Magnesium 2.6 mg/dL (1.6-2.6); Potassium 4.3 mmol/L (3.5-5.1); Sodium 137 mmol/L (136-145)
[2020-10-03 13:03] LABS: Alanine Aminotransferase 19 U/L (13-56); Alkaline Phosphatase 70 U/L (45-117); Aspartate Aminotransferase 17 U/L (15-37); BUN/Creatinine Ratio 24.5; Bilirubin, Total 0.4 mg/dL (0.2-1.0); GFR African American 73 mL/min; GFR Non-African American 60 mL/min; Total Protein 6.2 g/dL (6.4-8.2)
== END 2020-10-03 13:28 | disposition left against medical advice (07) ==
LOC: ER 10:57 → EDBD 10:57 → ER 13:28
DX: R55 Syncope and collapse (principal); R10.31 Right lower quadrant pain; I10 Essential (primary) hypertension; K21.9 Gastro-esophageal reflux disease without esophagitis; E78.5 Hyperlipidemia, unspecified; Z90.49 Acquired absence of other specified parts of digestive tract; Z90.710 Acquired absence of both cervix and uterus; Z90.89 Acquired absence of other organs; Z79.899 Other long term (current) drug therapy; Z88.1 Allergy status to other antibiotic agents
CPT/HCPCS: 36415; 70450; 71045; 74176; 80053; 83690; 83735; 84484; 85025; 93005

== ENCOUNTER → 2020-10-26 | Outpatient (CLI) | payer MEDICARE, BC | END | disposition home or self-care (01) | LOC: Rad HDHVI 13:31 | PROVIDERS: ATTEND Internal Medicine Cardiovascular Disease | DX: K86.89 Other specified diseases of pancreas (principal); M47.815 Spondylosis without myelopathy or radiculopathy, thoracolumbar region; M43.17 Spondylolisthesis, lumbosacral region; I70.90 Unspecified atherosclerosis; R10.9 Unspecified abdominal pain | CPT/HCPCS: 74176 ==

== ENCOUNTER → 2022-02-11 | Outpatient (CLI) | payer MEDICARE ==
[~2022-02-11] MED LIST changes: -ESTR2TAB PO; +ESTR2TAB2 PO; +FLUCONAZOLE 200MG/100ML 100 ML IV ONE
[2022-02-11 11:27] VITALS: BP 145/84
[2022-02-11 13:20] VITALS: BP 135/59
== END | disposition home or self-care (01) ==
LOC: CHF HDHVI 11:27
PROVIDERS: ATTEND Internal Medicine Cardiovascular Disease
DX: N76.0 Acute vaginitis (principal); K21.9 Gastro-esophageal reflux disease without esophagitis; E78.5 Hyperlipidemia, unspecified; I11.0 Hypertensive heart disease with heart failure; I50.23 Acute on chronic systolic (congestive) heart failure; Z79.899 Other long term (current) drug therapy; Z90.49 Acquired absence of other specified parts of digestive tract; Z90.710 Acquired absence of both cervix and uterus; Z88.1 Allergy status to other antibiotic agents
CPT/HCPCS: 96365; G0463; J1450

== ENCOUNTER 2022-06-27 20:01 | Emergency (ER) | payer MEDICARE ==
[~2022-06-27] VITALS: Ht 165.1 cm; Wt 62.1 kg
[~2022-06-27 20:01] MED LIST changes: -FLUCONAZOLE 200MG/100ML 100 ML IV ONE
[2022-06-27] MEDS ORDERED: ACET-1158 PO (21:53)
[2022-06-27] MEDS ORDERED: AMOX-277 PO (21:53)
[2022-06-27] MEDS ORDERED: cefTRIAXone SOD 1,000 MG VL IM ONE (22:00)
[2022-06-27 22:47] VITALS: BP 130/65
== END 2022-06-27 22:47 | disposition home or self-care (01) ==
LOC: ER 20:04
DX: L03.114 Cellulitis of left upper limb (principal); S60.512A Abrasion of left hand, initial encounter; K21.9 Gastro-esophageal reflux disease without esophagitis; E78.5 Hyperlipidemia, unspecified; I10 Essential (primary) hypertension; Z90.49 Acquired absence of other specified parts of digestive tract; Z90.710 Acquired absence of both cervix and uterus; Z88.1 Allergy status to other antibiotic agents; W55.03XA Scratched by cat, initial encounter; Y93.89 Activity, other specified; Y92.89 Other specified places as the place of occurrence of the external cause; Y99.8 Other external cause status
CPT/HCPCS: 73110; 73130; 96372; 99284; J0696

== ENCOUNTER 2022-07-27 13:01 | Emergency (ER) | payer MEDICARE ==
[~2022-07-27] VITALS: Ht 180.3 cm; Wt 61.3 kg
[~2022-07-27 13:01] MED LIST changes: +ACET500T58 PO; +AMIT10TA10 PO; -AMIT10TA8 PO; +AMOX875T4 PO; -ESTR2TAB2 PO; +ESTR2TAB5 PO; -LISI40TA11 PO; +LISI40TA16 PO
[2022-07-27 13:15] VITALS: BP 148/77
[2022-07-27] MEDS ORDERED: cloNIDine HCL 0.1 MG TAB PO ONE (13:30)
[2022-07-27 14:32] LABS: Basophils # (auto) 0.1 10 ^3/uL (0-0.2); Eosinophils # (auto) 0.4 10 ^3/uL (0-0.8); Eosinophils % (auto) 4.1 % (0.0-7.0); Hematocrit 41.2 % (36.0-46.0); Hemoglobin 13.8 g/dL (12.2-16.2); Lymphocytes # (auto) 2.5 10 ^3/uL (0.4-5.4); Lymphocytes % (auto) 28.9 % (10.0-50.0); Mean Corpuscular Hemoglobin 31.2 pg (28.0-32.0); Mean Corpuscular Hgb Conc. 33.4 g/dL (32.0-36.0); Mean Corpuscular Volume 93.5 fL (80.0-100.0); Monocytes # (auto) 0.9 10 ^3/uL (0-1.3); Monocytes % (auto) 10.5 % (0.0-12.0); Neutrophils # (auto) 4.7 10 ^3/uL (1.6-8.6); Neutrophils % (auto) 55.5 % (37.0-80.0); Nucleated Red Blood Cells % 0.1 %; Red Blood Cells 4.41 10^6/uL (4.0-5.20); Red Cell Distribution Width 14.3 % (11.8-14.3); White Blood Cell 8.5 10^3/uL (4.4-10.8)
[2022-07-27 15:04] LABS: Calcium 8.7 mg/dL (8.5-10.1); Potassium 4.4 mmol/L (3.5-5.1)
[2022-07-27 15:11] LABS: Albumin 3.3 g/dL (3.4-5.0); Bilirubin, Total 0.3 mg/dL (0.2-1.0); Total Protein 6.5 g/dL (6.4-8.2)
== END 2022-07-27 17:31 | disposition home or self-care (01) ==
LOC: ER 13:01
DX: I10 Essential (primary) hypertension (principal); K21.9 Gastro-esophageal reflux disease without esophagitis; E78.5 Hyperlipidemia, unspecified; Z90.49 Acquired absence of other specified parts of digestive tract; Z90.89 Acquired absence of other organs; Z90.710 Acquired absence of both cervix and uterus; Z79.2 Long term (current) use of antibiotics; Z79.899 Other long term (current) drug therapy; Z88.1 Allergy status to other antibiotic agents
CPT/HCPCS: 36415; 80053; 84484; 85025